=== PATIENT | female | born 1970 | race Caucasian/White ===

== ENCOUNTER 2020-07-12 01:18 | Inpatient (IN) | payer OTHER ==
[2020-07-12] MEDS ORDERED: MORPHINE SULFATE 4 MG/ML SYRINGE IV STA (01:36)
--- NOTE | 2020-07-12 01:39 | ED ---
Abdominal Pain HPI - General Chief Complaint: Abdominal Pain Stated Complaint: abd pain Time Seen by Provider: 07/12/20 01:27 Source: patient, family Mode of arrival: ambulatory Limitations: no limitations - History of Present Illness Initial Comments: This patient is a 50-year-old woman presenting to be evaluated for right lower abdominal and right flank pain. The patient states that the pains it started in the morning they were mild to moderate that time. She states that it is constant cramping feeling. She states that the pain is throughout the day and then became more severe this evening. She did have a bowel movement earlier but she thought that the pain may relate constipation so she took a laxative prior to coming in but did not have any further bowel movements. Patient did not note any change in urination. She has had some mild nausea no vomiting. No vaginal discharge or change in menses. She states that her next menstrual period is due to begin soon. MD Complaint: flank pain Onset/Timin -: hour(s) Location: RLQ, R flank Migration to: no migration Severity: moderate Quality: cramping Consistency: constant Improves With: nothing Worsens With: nothing Associated Symptoms: nausea - Related Data LMP (females 10-50): 1 month Home Medications Medication Instructions Recorded Confirmed [id number] 2 tab PO DAILY PRN 04/30/16 04/30/16 [Excedrin] Gillian Back And Body 2 tab PO ONCE 04/30/16 04/30/16 Previous Rx's Medication Instructions Recorded HYDROcodone/APAP 5-325MG [Heidrick 5] 1 each PO Q4HR PRN #20 tab 04/30/16 Ibuprofen [Motrin] 600 mg PO Q6HR PRN #20 tab 04/30/16 Ondansetron Odt [Zofran Odt] 4 mg PO Q8HR PRN #12 tab 04/30/16 Allergies Allergy/AdvReac Type Severity Reaction Status Date / Time No Known Allergies Allergy Verified 07/12/20 01:26 Review of Systems ROS Statement: Those systems with pertinent positive or pertinent negative responses have been documented in the HPI. ROS Other: All systems not noted in ROS Statement are negative. Constitutional: Denies: fever, chills Respiratory: Denies: cough, dyspnea Cardiovascular: Denies: chest pain, palpitations, edema Gastrointestinal: Reports: abdominal pain, nausea. 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 Absent: scleral icterus, conjunctival injection ENT exam: Present: normal oropharynx Neck exam: Present: normal inspection Respiratory exam: Present: normal lung sounds bilaterally. Absent: respiratory distress, wheezes, rales Cardiovascular Exam: Present: regular rate, normal rhythm, normal heart sounds. Absent: systolic murmur, diastolic murmur, rubs, gallop GI/Abdominal exam: Present: soft, tenderness, normal bowel sounds. Absent: distended, guarding, rebound, rigid, mass, pulsatile mass, hernia Extremities exam: Present: normal inspection, normal capillary refill. Absent: pedal edema, calf tenderness Back exam: Present: normal inspection, CVA tenderness (R). Absent: CVA tenderness (L) Neurological exam: Present: alert Skin exam: Present: warm, dry, intact, normal color. Absent: rash Course Vital Signs 07/12/20 01:22 Temperature 98.6 F Pulse Rate 85 Respiratory 20 Rate Blood Pressure 178/87 O2 Sat by Pulse 99 Oximetry Medical Decision Making - Lab Data Result diagrams: 07/12/20 01:49 07/12/20 01:49 Lab Results 07/12/20 07/12/20 07/12/20 Range/Units 01:49 01:49 01:49 WBC 12.7 H (3.8-10.6) k/uL RBC 5.02 (3.80-5.40) m/uL Hgb 14.5 (11.4-16.0) gm/dL Hct 44.2 (34.0-46.0) % MCV 88.2 (80.0-100.0) fL MCH 28.9 (25.0-35.0) pg MCHC 32.8 (31.0-37.0) g/dL RDW 14.6 (11.5-15.5) % Plt Count 398 (150-450) k/uL Neutrophils % 75 % Lymphocytes % 17 % Monocytes % 5 % Eosinophils % 2 % Basophils % 0 % Neutrophils # 9.5 H (1.3-7.7) k/uL Lymphocytes # 2.1 (1.0-4.8) k/uL Monocytes # 0.7 (0-1.0) k/uL Eosinophils # 0.3 (0-0.7) k/uL Basophils # 0.0 (0-0.2) k/uL Sodium 133 L (137-145) mmol/L Potassium 5.2 H (3.5-5.1) mmol/L Chloride 104 (98-107) mmol/L Carbon Dioxide 21 L (22-30) mmol/L Anion Gap 8 mmol/L BUN 14 (7-17) mg/dL Creatinine 1.11 H (0.52-1.04) mg/dL Est GFR (CKD-EPI)AfAm 67 (>60 ml/min/1.73 sqM) Est GFR (CKD-EPI)NonAf 58 (>60 ml/min/1.73 sqM) Glucose 147 H (74-99) mg/dL Calcium 9.1 (8.4-10.2) mg/dL Total Bilirubin 1.3 (0.2-1.3) mg/dL AST 44 H (14-36) U/L ALT 24 (4-34) U/L Alkaline Phosphatase 73 (38-126) U/L Total Protein 9.5 H (6.3-8.2) g/dL Albumin 4.5 (3.5-5.0) g/dL Amylase 57 (30-110) U/L Lipase 90 (23-300) U/L Urine Color Yellow Urine Appearance Clear (Clear) Urine pH 6.5 (5.0-8.0) Ur Specific [place] 1.024 (1.001-1.035) Urine Protein 1+ H (Negative) Urine Glucose (UA) Negative (Negative) Urine Ketones Trace H (Negative) Urine Blood Small H (Negative) Urine Nitrite Negative (Negative) Urine Bilirubin Negative (Negative) Urine Urobilinogen <2.0 (<2.0) mg/dL Ur Leukocyte Esterase Negative (Negative) Urine RBC 11 H (0-5) /hpf Urine WBC 2 (0-5) /hpf Ur Squamous Epith Cells 6 H (0-4) /hpf Urine Mucus Rare H (None) /hpf Urine HCG, Qual (Not Detectd) 07/12/20 Range/Units 01:49 WBC (3.8-10.6) k/uL RBC (3.80-5.40) m/uL Hgb (11.4-16.0) gm/dL Hct (34.0-46.0) % MCV (80.0-100.0) fL MCH (25.0-35.0) pg MCHC (31.0-37.0) g/dL RDW (11.5-15.5) % Plt Count (150-450) k/uL Neutrophils % % Lymphocytes % % Monocytes % % Eosinophils % % Basophils % % Neutrophils # (1.3-7.7) k/uL Lymphocytes # (1.0-4.8) k/uL Monocytes # (0-1.0) k/uL Eosinophils # (0-0.7) k/uL Basophils # (0-0.2) k/uL Sodium (137-145) mmol/L Potassium (3.5-5.1) mmol/L Chloride (98-107) mmol/L Carbon Dioxide (22-30) mmol/L Anion Gap mmol/L BUN (7-17) mg/dL Creatinine (0.52-1.04) mg/dL Est GFR (CKD-EPI)AfAm (>60 ml/min/1.73 sqM) Est GFR (CKD-EPI)NonAf (>60 ml/min/1.73 sqM) Glucose (74-99) mg/dL Calcium (8.4-10.2) mg/dL Total Bilirubin (0.2-1.3) mg/dL AST (14-36) U/L ALT (4-34) U/L Alkaline Phosphatase (38-126) U/L Total Protein (6.3-8.2) g/dL Albumin (3.5-5.0) g/dL Amylase (30-110) U/L Lipase (23-300) U/L Urine Color Urine Appearance (Clear) Urine pH (5.0-8.0) Ur Specific [place] (1.001-1.035) Urine Protein (Negative) Urine Glucose (UA) (Negative) Urine Ketones (Negative) Urine Blood (Negative) Urine Nitrite (Negative) Urine Bilirubin (Negative) Urine Urobilinogen (<2.0) mg/dL Ur Leukocyte Esterase (Negative) Urine RBC (0-5) /hpf Urine WBC (0-5) /hpf Ur Squamous Epith Cells (0-4) /hpf Urine Mucus (None) /hpf Urine HCG, Qual Not Detected (Not Detectd) Disposition Clinical Impression: Kidney stone on right side Disposition: ADMITTED IP TO THIS [facility] Condition: Good Referrals: None,Stated [Primary Care Provider] - 1-2 days
[2020-07-12 02:01] LABS: Basophils % (A) 0 %; Eosinophils # (A) 0.3 k/uL (0-0.7); Eosinophils % (A) 2 %; HCT 44.2 % (34.0-46.0); HGB 14.5 gm/dL (11.4-16.0); Lymphocytes # (A) 2.1 k/uL (1.0-4.8); Lymphocytes % (A) 17 %; MCH 28.9 pg (25.0-35.0); MCHC 32.8 g/dL (31.0-37.0); MCV 88.2 fL (80.0-100.0); Mean Platelet Volume 7.2; Monocytes # (A) 0.7 k/uL (0-1.0); Monocytes % (A) 5 %; Neutrophils # (A) 9.5 k/uL (1.3-7.7); Neutrophils % (A) 75 %; Platelet Count 398 k/uL (150-450); RBC 5.02 m/uL (3.80-5.40); RDW 14.6 % (11.5-15.5); WBC 12.7 k/uL (3.8-10.6)
[2020-07-12 02:07] LABS: Albumin 4.5 g/dL (3.5-5.0); Calcium 9.1 mg/dL (8.4-10.2); Total Bilirubin 1.3 mg/dL (0.2-1.3); Total Protein 9.5 g/dL (6.3-8.2)
[2020-07-12 02:11] LABS: Potassium 5.2 mmol/L (3.5-5.1)
[2020-07-12 02:18] LABS: Appearance,Urine Clear (Clear); Bilirubin,Urine Negative (Negative); Blood,Urine Small (Negative); Color,Urine Yellow; Glucose,Urine (UA) Negative (Negative); Ketones,Urine Trace (Negative); Leukocyte Esterase,Urine Negative (Negative); Mucus,Urine Rare /hpf; Nitrite,Urine Negative (Negative); PH, Urine 6.5 (5.0-8.0); Protein,Urine 1+ (Negative); RBC,Urine 11 /hpf (0-5); Specific Gravity,Urine 1.024 (1.001-1.035); Squamous Epithelial Cell,Urine 6 /hpf (0-4); Urobilinogen,Urine <2.0 mg/dL (<2.0); WBC,Urine 2 /hpf (0-5)
--- NOTE | 2020-07-12 02:30 | CT ---
EXAMINATION TYPE: CT abdomen pelvis wo con DATE OF EXAM: 07/12/2020 COMPARISON: 04/30/2016 HISTORY: RLQ and right flank pain hx of cholecystectomy. CT DLP: 1070.4 mGycm Automated exposure control for dose reduction was used. Images obtained from the diaphragm to the floor the pelvis without contrast. The lung bases are clear. There is no pleural effusion. Heart appears normal. There is small hiatal h ernia. There is small calcified granuloma in this spleen and liver. There are clips from cholecystectomy. Th e bile ducts are not dilated. The pancreas appears normal. There is no adrenal mass. Right kidney is mildly enlarged with hydronephrosis. There is 1 cm calculus at the right ureteropelvic junction. There is mild right-sided perinephric edema. There is no retrop eritoneal adenopathy. Appendix is posterior and appears normal. Bladder distends smoothly. There is no inguinal hernia. Uterus is anteverted. There is no free fluid in the pelvis. There is no ascites or free air. There is no bowel obstruction. There is no mesenteric edema. There is no evidence of a pelvic mass. The ureters are not dilated. The lumbar vertebra have normal spacing and alignment. The bony pelvis is intact. IMPRESSION: Large obstructing calculus at the right ureteropelvic junction with moderate right-sided hydronephros is and perinephric edema. Obstruction is new compared to old exam. Normal appendix.
[2020-07-12] MEDS ORDERED: ONDANSETRON 4 MG/2 ML VIAL IVP STA (02:49)
[2020-07-12] MEDS ORDERED: HYDROmorphone 1 MG/ML 1 ML SYRINGE IVP STA (02:49)
[2020-07-12] MEDS ORDERED: NALOXONE 0.4 MG/ML 1 ML VIAL IV PRN (03:03)
[2020-07-12] MEDS ORDERED: HYDROmorphone 0.5 MG/0.5 ML SYRINGE IVP PRN (03:03)
[2020-07-12] MEDS: SODIUM CHLORIDE 0.9% 1,000 ML IV SCH (03:21)
--- NOTE | 2020-07-12 07:46 | P.GSHP ---
History of Present Illness H&P Date: 07/12/20 Chief Complaint: Right renal colic The patient is a 50-year-old white female with a history of kidney stones, none of which have required surgery. She developed acute onset of right flank pain yesterday morning. She experienced nausea associated with this. She presented to the emergency room, and her evaluation included a computed tomography scan which revealed moderate right hydronephrosis due to a 1 cm UPJ calculus. 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, kidney stones History of Any Multi-Drug Resistant Organisms: None Reported Past Surgical History: Cholecystectomy, Orthopedic Surgery, Tubal Ligation Additional Past Surgical History / Comment(s): lap, left knee scope Past Anesthesia/Blood Transfusion Reactions: No Reported Reaction Past Psychological History: No Psychological Hx Reported Smoking Status: Former smoker Past Alcohol Use History: Occasional Past Drug Use History: None Reported - Past Family History Father Family Medical History: Cancer Additional Family Medical History / Comment(s): prostate Mother Family Medical History: Hypertension Medications and Allergies Home Medications Medication Instructions Recorded Confirmed Type [id number] 2 tab PO DAILY PRN 04/30/16 07/12/20 History [Excedrin] Docusate Oral Soln [Colace Oral 300 mg PO ONCE PRN 07/12/20 07/12/20 History Soln] Allergies Allergy/AdvReac Type Severity Reaction Status Date / Time No Known Allergies Allergy Verified 07/12/20 07:20 Surgical - Exam Vital Signs Temp Pulse Resp BP Pulse Ox 98.6 F 85 20 178/87 99 07/12/20 01:22 07/12/20 01:22 07/12/20 01:22 07/12/20 01:22 07/12/20 01:22 - General well developed, well nourished, no distress - Neck no masses, trachea midline - Respiratory normal respiratory effort - Abdomen Abdomen: soft, tender (right sided tenderness), no guarding, no rigid, no rebound, no distended - Psychiatric oriented to time, oriented to person, oriented to place, speech is normal, memor y intact Results - Labs 07/12/20 01:49 07/12/20 01:49 Abnormal Lab Results - Last 24 Hours (Table) 07/12/20 07/12/20 07/12/20 Range/Units 01:49 01:49 01:49 WBC 12.7 H (3.8-10.6) k/uL Neutrophils # 9.5 H (1.3-7.7) k/uL Sodium 133 L (137-145) mmol/L Potassium 5.2 H (3.5-5.1) mmol/L Carbon Dioxide 21 L (22-30) mmol/L Creatinine 1.11 H (0.52-1.04) mg/dL Glucose 147 H (74-99) mg/dL AST 44 H (14-36) U/L Total Protein 9.5 H (6.3-8.2) g/dL Urine Protein 1+ H (Negative) Urine Ketones Trace H (Negative) Urine Blood Small H (Negative) Urine RBC 11 H (0-5) /hpf Ur Squamous Epith Cells 6 H (0-4) /hpf Urine Mucus Rare H (None) /hpf Diabetes panel 07/12/20 Range/Units 01:49 Sodium 133 L (137-145) mmol/L Potassium 5.2 H (3.5-5.1) mmol/L Chloride 104 (98-107) mmol/L Carbon Dioxide 21 L (22-30) mmol/L BUN 14 (7-17) mg/dL Creatinine 1.11 H (0.52-1.04) mg/dL Glucose 147 H (74-99) mg/dL Calcium 9.1 (8.4-10.2) mg/dL AST 44 H (14-36) U/L ALT 24 (4-34) U/L Alkaline Phosphatase 73 (38-126) U/L Total Protein 9.5 H (6.3-8.2) g/dL Albumin 4.5 (3.5-5.0) g/dL Calcium panel 07/12/20 Range/Units 01:49 Calcium 9.1 (8.4-10.2) mg/dL Albumin 4.5 (3.5-5.0) g/dL Pituitary panel 07/12/20 Range/Units 01:49 Sodium 133 L (137-145) mmol/L Potassium 5.2 H (3.5-5.1) mmol/L Chloride 104 (98-107) mmol/L Carbon Dioxide 21 L (22-30) mmol/L BUN 14 (7-17) mg/dL Creatinine 1.11 H (0.52-1.04) mg/dL Glucose 147 H (74-99) mg/dL Calcium 9.1 (8.4-10.2) mg/dL Adrenal panel 07/12/20 Range/Units 01:49 Sodium 133 L (137-145) mmol/L Potassium 5.2 H (3.5-5.1) mmol/L Chloride 104 (98-107) mmol/L Carbon Dioxide 21 L (22-30) mmol/L BUN 14 (7-17) mg/dL Creatinine 1.11 H (0.52-1.04) mg/dL Glucose 147 H (74-99) mg/dL Calcium 9.1 (8.4-10.2) mg/dL Total Bilirubin 1.3 (0.2-1.3) mg/dL AST 44 H (14-36) U/L ALT 24 (4-34) U/L Alkaline Phosphatase 73 (38-126) U/L Total Protein 9.5 H (6.3-8.2) g/dL Albumin 4.5 (3.5-5.0) g/dL - Imaging CT scan - abdomen: report reviewed, image reviewed Assessment and Plan (1) Hydronephrosis with renal and ureteral calculous obstruction Current Visit: Yes Status: Acute Code(s): N13.2 - HYDRONEPHROSIS WITH RENAL AND URETERAL CALCULOUS OBSTRUCTION SNOMED Code(s): 056792254 (2) Calculus of ureter Current Visit: Yes Status: Acute Code(s): N20.1 - CALCULUS OF URETER SNOMED Code(s): 73333409 Plan: I had a lengthy discussion with the patient regarding her 1 cm UPJ calculus. I explained to her that the likelihood this will pass spontaneously is extremely low. We discussed alternative treatment options, namely extracorporal shockwave lithotripsy (ESWL) versus ureteroscopy with laser lithotripsy. She has elected to proceed with the latter, and this will be performed tomorrow morning. The procedure was reviewed in detail with her, including risks which include anesthesia, infection, ureteral injury, and inability to successfully remove the calculus. She is aware that a ureteral stent will be placed, and that she may require an additional procedure. Time with Patient: Greater than 30
[2020-07-12] MEDS: HYDROmorphone 1 MG/ML 1 ML SYRINGE IVP PRN ×4 (08:00→21:20)
[2020-07-12] MEDS: ONDANSETRON 4 MG/2 ML VIAL IVP PRN ×2 (12:04→21:25)
[2020-07-13] MEDS: HYDROmorphone 1 MG/ML 1 ML SYRINGE IVP PRN ×2 (01:26→05:45)
[2020-07-13] MEDS: SODIUM CHLORIDE 0.9% 1,000 ML IV SCH (05:30)
[2020-07-13] MEDS: ONDANSETRON 4 MG/2 ML VIAL IVP PRN (06:30)
[2020-07-13] MEDS ORDERED: PROPOFOL 10 MG/ML 20 ML VIAL IV ONE (08:09)
[2020-07-13] MEDS ORDERED: fentaNYL (PF) 50 MCG/ML 2 ML AMP ONE (08:09)
[2020-07-13] MEDS ORDERED: LIDOCAINE 1% INJ 10MG/ML (20 ML MDV) ONE (08:09)
[2020-07-13] MEDS ORDERED: MIDAZOLAM 2 MG/2 ML VIAL ONE (08:09)
[2020-07-13] MEDS ORDERED: SODIUM CHLORIDE 0.9% 1,000 ML IV ONE (08:13)
[2020-07-13] MEDS ORDERED: LACTATED RINGERS 1,000 ML IV ONE (09:12)
--- NOTE | 2020-07-13 09:29 | P.OP ---
Date of Procedure: 07/13/20 Preoperative Diagnosis: Right UPJ calculus Postoperative Diagnosis: Same Procedure(s) Performed: Cystoscopy, right ureteroscopy with Holmium laser lithotripsy, right ureteral stent insertion Anesthesia: SERGOA Surgeon: Trev Medrano Estimated Blood Loss (ml): 10 IV fluids (ml): 1,000 Pathology: none sent Condition: stable Disposition: PACU Indications for Procedure: The patient is a 50-year-old white female with a history of kidney stones, none of which have required surgery. She developed acute onset of right flank pain yesterday morning. She experienced nausea associated with this. She presented to the emergency room, and her evaluation included a computed tomography scan which revealed moderate right hydronephrosis due to a 1 cm UPJ calculus. Operative Findings: 1 cm right UPJ calculus, fragmented completely. Description of Procedure: The patient was taken to the operating room and placed in the dorsolithotomy position, with legs supported in Kurt stirrups. The external genitalia was prepped and draped sterilely. The 30 lens was used to introduce the 21-[place] cystoscopic sheath through the urethra and into the bladder under direct vision. The bladder was examined in its entirety. Both ureteral orifices were normal anatomic location and configuration, and clear urine effluxed from both. No tumors or foreign bodies were seen. A 0.038 inch Glidewire was passed through the cystoscope. The right ureteral orifice was cannulated, and the Glidewire was advanced up to the calculus. It then passed alongside the calculus and into the right renal pelvis. The cystoscope was removed, and an 11/13-[place] ureteral access catheter was passed over the wire. The [employer] flexible ureteroscope was advanced through the ureteral access catheter sheath, then through the proximal ureter under direct vision. The calculus was seen within the right renal pelvis. The 272 micron Holmium laser probe was passed through the ureteroscope, and lithotripsy was performed utilizing a dusting mode. However, the calculus then began to fragment, and 2 pieces refluxed into a midpole calyx. Within that calyx, fragmentation of the calculus was completed, leaving primarily dust with no stone fragments exceeding 1-2 mm in size. The ureteroscope was removed. The Glidewire was passed through the ureteral access catheter sheath, which was removed. The Glidewire was backloaded into the cystoscope, which was passed into the bladder. A 22 cm, 6-[place] double-J ureteral stent was placed over the wire. Proper stent positioning was verified fluoroscopically and endoscopical ly. The bladder was emptied and the cystoscope removed. The patient tolerated the procedure well and was taken to the recovery room in stable condition. [facility] Report: Procedure Acuity: Urgent Stone Size and Location: 1 cm, right UPJ Ureteral Dilation: No Ureteral Access Sheath Used: Yes Stone Sent for Analysis: No All Stones/Fragments Were Removed with a Basket: No Complications: No Preoperative Antibiotics Given: No Stent Placed: Yes If Stent Placed, Was String Left Attached: No If Stent Placed, When is it to be Removed: 1 week Discharge Medications: None
[2020-07-13 09:33] VITALS: TEMP 97.3
[2020-07-13 09:46] VITALS: RESP 16
--- NOTE | 2020-07-13 09:53 | FL ---
EXAMINATION TYPE: FL guidance operating room DATE OF EXAM: 07/13/2020 CLINICAL HISTORY: Right-sided kidney stone. TECHNIQUE: Fluoroscopy. COMPARISON: CT abdomen and pelvis from one day earlier.. FINDINGS: Fluoroscopic guidance was provided during right ureterogram with stent insertion procedure performed by Dr. Medrano. A total of 40 seconds of fluoroscopic time was utilized during the procedu re and 2 spot intraoperative images are acquired. Intraoperative images obtained show right ureter access with subsequent advancement of ureter stent. IMPRESSION: As Above.
[2020-07-13 12:34] VITALS: BP 129/85; PULSE 71
== END 2020-07-13 14:18 | disposition home or self-care (01) | DRG 661 ==
LOC: EC 01:18 → 6NMEDSUR 03:09
PROVIDERS: ADMIT Urology; ATTEND Urology
PROC: 0TF38ZZ Fragmentation in Right Kidney Pelvis, Via Natural or Artificial Opening Endoscopic (ICD-10-PCS; principal; 2020-07-13 08:00)
PROC: 0T768DZ Dilation of Right Ureter with Intraluminal Device, Via Natural or Artificial Opening Endoscopic (ICD-10-PCS; principal; 2020-07-13 08:00)
DX: N13.2 Hydronephrosis with renal and ureteral calculous obstruction (principal); M19.90 Unspecified osteoarthritis, unspecified site; Z87.442 Personal history of urinary calculi; Z87.891 Personal history of nicotine dependence; Z90.49 Acquired absence of other specified parts of digestive tract; Z98.890 Other specified postprocedural states; Z87.19 Personal history of other diseases of the digestive system; Z98.51 Tubal ligation status; Z82.49 Family history of ischemic heart disease and other diseases of the circulatory system; Z86.79 Personal history of other diseases of the circulatory system; Z79.82 Long term (current) use of aspirin
CPT/HCPCS: 36415; 74176; 80053; 81001; 81025; 82150; 83690; 85025; 96374; 96375; 99285

== ENCOUNTER 2022-04-05 23:31 | Emergency (ER) | payer OTHER ==
--- NOTE | 2022-04-06 00:16 | XR ---
EXAM: XR Chest, 2 Views CLINICAL HISTORY: ITS.REASON XR Reason: Cough TECHNIQUE: Frontal and lateral views of the chest. COMPARISON: No previous studies. FINDINGS: Lungs: Patchy airspace disease at the left lower lobe differential etiologies for which includes atelectasis versus early or residual pneumonia. Pleural space: Unremarkable. No pneumothorax. Heart: Mild cardiomegaly. Mediastinum: Unremarkable. Bones/joints: Osseous structures and soft tissues are unremarkable. Mild to moderate degenerative disc disease of the thoracic spine, kyphosis, and levoscoliosis. IMPRESSION: 1. Cardiomegaly. 2. Patchy airspace disease at the left lung base differential etiologies which includes atelectasis versus early or residual pneumonia. Clinical correlation is advised.
[2022-04-06] MEDS ORDERED: SODIUM CHLORIDE 0.9% 1,000 ML IV STA (00:17)
[2022-04-06] MEDS ORDERED: ACETAMINOPHEN TAB 500 MG TAB PO STA (00:17)
--- NOTE | 2022-04-06 00:41 | ED ---
URI HPI - General Source: patient Mode of arrival: ambulatory Limitations: no limitations - History of Present Illness MD Complaint: fever, cough, nasal congestion <Andi Goel - Last Filed: 04/06/22 03:50> <Guido Perkins - Last Filed: 04/06/22 06:09> - General Chief Complaint: Upper Respiratory Infection Stated Complaint: SOB, cough Time Seen by Provider: 04/05/22 23:52 - History of Present Illness Initial Comments: This is a generally healthy 51-year-old female who presents to emergency room complaining of a few days of body aches, cough, some shortness of breath, some fever, mild headache. Patient is immunized against COVID-19. Patient has no history of cardiovascular disease. Patient is been eating and drinking normally. No nausea or vomiting. No change in balance urination. No abdominal pain. No chest pain. no changes in vision or hearing, no sore throat or difficulty with speech, no neck pain, no chest pain, no abdominal pain, no nausea or vomiting, no changes in urination or bowel movements, no numbness or tingling, no extremity pain, no skin rashes or lesions. (Andi Goel) - Related Data Home Medications Medication Instructions Recorded Confirmed [id number] 2 tab PO DAILY PRN 04/30/07/12/20 [Excedrin] Docusate Oral Soln [Colace Oral 300 mg PO ONCE PRN 07/12/20 07/12/20 Soln] Previous Rx's Medication Instructions Recorded Amoxic-Pot Clav 875-125Mg 1 tab PO BID 10 Days #20 tab 04/06/22 [Augmentin 875-125] Azithromycin [Zithromax Z Pack] 1 tab PO DIRECTED #6 tab 04/06/22 Allergies Allergy/AdvReac Type Severity Reaction Status Date / Time No Known Allergies Allergy Verified 04/05/22 23:37 Review of Systems ROS Other: All systems not noted in ROS Statement are negative. <Andi Goel - Last Filed: 04/06/22 03:50> ROS Other: All systems not noted in ROS Statement are negative. <Guido Perkins - Last Filed: 04/06/22 06:09> ROS Statement: Those systems with pertinent positive or pertinent negative responses have been documented in the HPI. 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, kidney stones History of Any Multi-Drug Resistant Organisms: None Reported Past Surgical History: Cholecystectomy, Orthopedic Surgery, Tubal Ligation Additional Past Surgical History / Comment(s): lap, left knee scope Past Anesthesia/Blood Transfusion Reactions: No Reported Reaction Past Psychological History: No Psychological Hx Reported Smoking Status: Former smoker Past Alcohol Use History: Occasional Past Drug Use History: None Reported - Past Family History Father Family Medical History: Cancer Additional Family Medical History / Comment(s): prostate Mother Family Medical History: Hypertension <AmandoAndi Clement Carmelo Filed: 04/06/22 03:50> General Exam Limitations: no limitations General appearance: alert, in no apparent distress Head exam: Present: atraumatic, normocephalic, normal inspection Eye exam: Present: normal appearance, PERRL, EOMI. Absent: scleral icterus, conjunctival injection, periorbital swelling ENT exam: Present: normal exam, normal oropharynx, mucous membranes moist. Absent: mucous membranes dry, normal external ear exam Neck exam: Present: normal inspection, full ROM. Absent: tenderness, meningismus, lymphadenopathy Respiratory exam: Present: rhonchi. Absent: respiratory distress, wheezes, rales, stridor, chest wall tenderness, accessory muscle use, decreased breath sounds, prolonged expiratory Cardiovascular Exam: Present: regular rate, normal rhythm, normal heart sounds. Absent: systolic murmur, diastolic murmur, rubs, gallop, clicks GI/Abdominal exam: Present: soft, normal bowel sounds. Absent: distended, tenderness, guarding, rebound, rigid Extremities exam: Present: normal inspection, full ROM, normal capillary refill. Absent: tenderness, pedal edema, joint swelling, calf tenderness Back exam: Present: normal inspection Neurological exam: Present: alert, oriented X3, CN II-XII intact Psychiatric exam: Present: normal affect, normal mood Skin exam: Present: warm, dry, intact, normal color. Absent: rash, cyanosis, diaphoretic, erythema, urticaria, vesicles, petechiae, pallor, mottled, abrasion <AmandoAndi Clement Carmelo Filed: 04/06/22 03:50> - General Exam Comments Initial Comments: Patient appears to be in mild distress. However does not appear to be toxic. Capillary refill less than 2 seconds. No evidence of mottling. Moist mucous membranes (Andi Goel) Course <Andi Goel - Last Filed: 04/06/22 03:50> Vital Signs 04/05/22 04/06/22 04/06/22 23:31 00:58 02:08 Temperature 100.9 F H Pulse Rate 111 H 87 Respiratory 20 26 H Rate Blood Pressure 153/76 O2 Sat by Pulse 96 Oximetry 04/06/22 04/06/22 04/06/22 02:18 02:45 02:57 Temperature 99.1 F Pulse Rate 87 84 Respiratory 20 Rate Blood Pressure 116/67 O2 Sat by Pulse 92 L 95 Oximetry 04/06/22 04/06/22 03:51 04:00 Temperature Pulse Rate Respiratory Rate Blood Pressure O2 Sat by Pulse 99 99 Oximetry - Reevaluation(s) Reevaluation #1: 04/06/22 02:12 Medical record is reviewed Symptoms are improved here in the emergency department Patient is informed of results and questions answered Patient in no distress (Andi Goel) Reevaluation #2: 04/06/22 02:51 Medical record is reviewed Patient's vital signs have stabilized, although the patient's pulse oximetry has dropped into the high 80s low 90s. Pulse oximetry at 88% on room air when I enter the room. Patient is informed of results and questions answered (Andi Goel) Reevaluation #3: 04/06/22 03:50 Medical record is reviewed Symptoms are improved here in the emergency department Patient is informed of results and questions answered male with stress. Oxygen saturation 95% on 2 L nasal cannula. (Andi Goel) Medical Decision Making - Lab Data Result diagrams: 04/06/22 00:43 04/06/22 03:30 - Radiology Data Radiology results: report reviewed, image reviewed (X-ray findings consistent with left lower lobe pneumonia) <Andi Goel - Last Filed: 04/06/22 03:50> - Lab Data Result diagrams: 04/06/22 00:43 04/06/22 03:30 <Guido Perkins - Last Filed: 04/06/22 06:09> - Medical Decision Making Patient had oxygen desaturation down to 88% when I enter the room for reevaluation. Patient's other vital signs at stabilized. Going to add on a d- dimer based on these findings. The patient's white blood cell count is normal. She did have a fever of 101.9 when she came to the ER. Patient also has evidence of left lower lobe infiltrate/atelectasis. Motor the patient has low lymphocytes. Negative COVID-19, negative influenza test. Repeat cardiopulmonary examination at 2:50 AM reveals regular rate and rhythm, no murmur, scattered and infrequent rhonchi, greater on the left. No wheezing. No tachypnea. (Andi Goel) CT showing consolidated pneumonia, patient had been given IV antibiotics in emergency prompt. She is offered admission however she prefers discharge at this time she is not hypoxic. Antibiotics are sent to her pharmacy. She will return with worsening or changing symptoms. (Guido Perkins) - Lab Data Lab Results 04/05/22 04/05/22 04/06/22 Range/Units 23:40 23:40 00:43 WBC 8.6 (3.8-10.6) k/uL RBC 4.37 (3.80-5.40) m/uL Hgb 13.2 (11.4-16.0) gm/dL Hct 39.0 (34.0-46.0) % MCV 89.2 (80.0-100.0) fL MCH 30.3 (25.0-35.0) pg MCHC 34.0 (31.0-37.0) g/dL RDW 14.9 (11.5-15.5) % Plt Count 288 (150-450) k/uL MPV 7.5 Neutrophils % 88 % Lymphocytes % 7 % Monocytes % 4 % Eosinophils % 0 % Basophils % 1 % Neutrophils # 7.5 (1.3-7.7) k/uL Lymphocytes # 0.6 L (1.0-4.8) k/uL Monocytes # 0.4 (0-1.0) k/uL Eosinophils # 0.0 (0-0.7) k/uL Basophils # 0.1 (0-0.2) k/uL D-Dimer (<0.60) mg/L FEU Sodium (137-145) mmol/L Potassium (3.5-5.1) mmol/L Chloride (98-107) mmol/L Carbon Dioxide (22-30) mmol/L Anion Gap mmol/L BUN (7-17) mg/dL Creatinine (0.52-1.04) mg/dL Est GFR (CKD-EPI)AfAm (>60 ml/min/1.73 sqM) Est GFR (CKD-EPI)NonAf (>60 ml/min/1.73 sqM) Glucose (74-99) mg/dL Plasma Lactic Acid Tera (0.7-2.0) mmol/L Calcium (8.4-10.2) mg/dL Total Bilirubin (0.2-1.3) mg/dL AST (14-36) U/L ALT (4-34) U/L Alkaline Phosphatase (38-126) U/L Total Protein (6.3-8.2) g/dL Albumin (3.5-5.0) g/dL Coronavirus (PCR) Not Detected (Not Detectd) Influenza Type A RNA Not Detected (Not Detectd) Influenza Type B (PCR) Not Detected (Not Detectd) 04/06/22 04/06/22 04/06/22 Range/Units 00:43 02:56 03:30 WBC (3.8-10.6) k/uL RBC (3.80-5.40) m/uL Hgb (11.4-16.0) gm/dL Hct (34.0-46.0) % MCV (80.0-100.0) fL MCH (25.0-35.0) pg MCHC (31.0-37.0) g/dL RDW (11.5-15.5) % Plt Count (150-450) k/uL MPV Neutrophils % % Lymphocytes % % Monocytes % % Eosinophils % % Basophils % % Neutrophils # (1.3-7.7) k/uL Lymphocytes # (1.0-4.8) k/uL Monocytes # (0-1.0) k/uL Eosinophils # (0-0.7) k/uL Basophils # (0-0.2) k/uL D-Dimer 0.81 H (<0.60) mg/L FEU Sodium 137 (137-145) mmol/L Potassium 3.5 (3.5-5.1) mmol/L Chloride 102 (98-107) mmol/L Carbon Dioxide 22 (22-30) mmol/L Anion Gap 13 mmol/L BUN 12 (7-17) mg/dL Creatinine 0.75 (0.52-1.04) mg/dL Est GFR (CKD-EPI)AfAm >90 (>60 ml/min/1.73 sqM) Est GFR (CKD-EPI)NonAf >90 (>60 ml/min/1.73 sqM) Glucose 134 H (74-99) mg/dL Plasma Lactic Acid Tera 1.6 (0.7-2.0) mmol/L Calcium 8.4 (8.4-10.2) mg/dL Total Bilirubin 0.5 (0.2-1.3) mg/dL AST 38 H (14-36) U/L ALT 36 H (4-34) U/L Alkaline Phosphatase 72 (38-126) U/L Total Protein 9.8 H (6.3-8.2) g/dL Albumin 4.2 (3.5-5.0) g/dL Coronavirus (PCR) (Not Detectd) Influenza Type A RNA (Not Detectd) Influenza Type B (PCR) (Not Detectd) Disposition <Andi Goel - Last Filed: 04/06/22 03:50> Is patient prescribed a controlled substance at d/c from ED?: No Time of Disposition: 05:25 <Guido Perkins - Last Filed: 04/06/22 06:09> Clinical Impression: Left lower lobe pneumonia, Community acquired pneumonia, Respiratory failure with hypoxia Disposition: HOME SELF-CARE Condition: Fair Instructions (If sedation given, give patient instructions): Bacterial Pneumonia (ED) Prescriptions: Amoxic-Pot Clav 875-125Mg [Augmentin 875-125] 1 tab PO BID 10 Days #20 tab Azithromycin [Zithromax Z Pack] 1 tab PO DIRECTED #6 tab Referrals: None,Stated [Primary Care Provider] - 1-2 days
[2022-04-06 01:34] LABS: Basophils # (A) 0.1 k/uL (0-0.2); Basophils % (A) 1 %; Eosinophils % (A) 0 %; HGB 13.2 gm/dL (11.4-16.0); Lymphocytes # (A) 0.6 k/uL (1.0-4.8); Lymphocytes % (A) 7 %; MCH 30.3 pg (25.0-35.0); MCV 89.2 fL (80.0-100.0); Mean Platelet Volume 7.5; Monocytes # (A) 0.4 k/uL (0-1.0); Monocytes % (A) 4 %; Neutrophils # (A) 7.5 k/uL (1.3-7.7); Neutrophils % (A) 88 %; Platelet Count 288 k/uL (150-450); RBC 4.37 m/uL (3.80-5.40); RDW 14.9 % (11.5-15.5); WBC 8.6 k/uL (3.8-10.6)
[2022-04-06] MEDS ORDERED: IPRATROPIUM-ALBUTEROL 3 ML NEB INHALATION STA (01:55)
[2022-04-06] MEDS ORDERED: PNEUMONIA PROTOCOL UTILIZED 1 EACH MISC PO PRN (01:55)
[2022-04-06] MEDS ORDERED: AZITHROMYCIN 500 MG in SODIUM CHLORIDE 0.9% 250 ML IVPB STA (01:55)
[2022-04-06 03:49] LABS: ALT 36 U/L (4-34); AST 38 U/L (14-36); African American GFR (CKD) >90 (>60 ml/min/1.73 sqM); Albumin 4.2 g/dL (3.5-5.0); Alkaline Phosphatase 72 U/L (38-126); Anion Gap 13 mmol/L; Blood Urea Nitrogen 12 mg/dL (7-17); Calcium 8.4 mg/dL (8.4-10.2); Carbon Dioxide 22 mmol/L (22-30); Chloride 102 mmol/L (98-107); Glucose 134 mg/dL (74-99); Non-African American GFR(CKD) >90 (>60 ml/min/1.73 sqM); Potassium 3.5 mmol/L (3.5-5.1); Sodium 137 mmol/L (137-145); Total Bilirubin 0.5 mg/dL (0.2-1.3); Total Protein 9.8 g/dL (6.3-8.2)
--- NOTE | 2022-04-06 06:05 | CT ---
EXAM: CT Angiography Chest With Intravenous Contrast CLINICAL HISTORY: ITS.REASON CT Reason: Shortness of breath, cough TECHNIQUE: Axial computed tomographic angiography images of the chest with intravenous contrast. CTDI is 28.084 mGy and DLP is 715.3 mGy-cm. This CT exam was performed using one or more of the following dose reduction techniques: automated exposure control, adjustment of the mA and/or kV according to patient size, and/or use of iterative reconstruction technique. MIP reconstructed images were created and reviewed. COMPARISON: No relevant prior studies available. FINDINGS: Pulmonary arteries: Unremarkable. No pulmonary embolism. Aorta: No acute findings. No thoracic aortic aneurysm. Lungs: Consolidation in the posterior left lower lobe with centrilobular ground-glass nodules in the inferior left upper lobe. Mild right base atelectasis. Pleural space: Unremarkable. No significant effusion. No pneumothorax. Heart: Unremarkable. No cardiomegaly. No significant pericardial effusion. No evidence of RV dysfunction. Bones/joints: No acute fracture. No dislocation. Soft tissues: Status post cholecystectomy. Multiple splenic calcifications consistent with sequela of prior granulomatous disease. Lymph nodes: Calcified right hilar lymph nodes. No enlarged lymph nodes. IMPRESSION: 1. No acute pulmonary embolism. 2. Consolidation in the posterior left lower lobe with centrilobular ground-glass nodules in the inferior left upper lobe which may be due to aspiration or multifocal infection.
[2022-04-06] MEDS ORDERED: KETOROLAC 15 MG/ML 1 ML VIAL IVP STA (06:20)
[2022-04-06 06:22] VITALS: PULSE 83
[2022-04-06 07:20] VITALS: BP 114/66; RESP 20; TEMP 98.5
== END 2022-04-06 07:21 | disposition home or self-care (01) ==
LOC: EC 23:31
DX: J96.91 Respiratory failure, unspecified with hypoxia (principal); J18.1 Lobar pneumonia, unspecified organism; Z87.891 Personal history of nicotine dependence; Z20.822 Contact with and (suspected) exposure to COVID-19
CPT/HCPCS: 36415; 94640; 85379; 80053; 83605; 85025; 87040; 87502; 87635; 71046; 71275; 99285; 96365; 96367; 96361; J0456; J0696; J1885; Q9967

== ENCOUNTER 2024-10-31 00:52 | Emergency (ER) | payer OTHER ==
--- NOTE | 2024-10-31 01:15 | ED ---
SOB HPI - General Chief Complaint: Shortness of Breath Stated Complaint: SOB weakness Time Seen by Provider: 10/31/24 01:00 Source: patient, RN notes reviewed, old records reviewed Mode of arrival: wheelchair Limitations: no limitations - History of Present Illness Initial Comments: This is a 54-year-old female this patient presents today for evaluation in regards to chest pain back pain cough shortness of breath fevers going on about 5 days now. Persistent chest pain today that got her concerned. No history of heart disease no lung issues MD Complaint: shortness of breath, cough, chest pain -: days(s) (5) Severity: moderate Severity scale (1-10): 6 Quality: aching, sharp Consistency: constant Improves With: nothing Worsens With: exertion Context: recent URI, recent illness Associated Symptoms: chest pain, fever, cough, sputum production Treatments Prior to Arrival: none - Related Data Home Medications Medication Instructions Recorded Confirmed [id number] 2 tab PO DAILY PRN 04/30/16 07/12/20 [Excedrin] Docusate Oral Soln [Colace Oral 300 mg PO ONCE PRN 07/12/20 07/12/20 Soln] Previous Rx's Medication Instructions Recorded Amoxic-Pot Clav 875-125Mg 1 tab PO BID 10 Days #20 tab 04/06/22 [Augmentin 875-125] Azithromycin [Zithromax Z Pack] 1 tab PO DIRECTED #6 tab 04/06/22 Allergies Allergy/AdvReac Type Severity Reaction Status Date / Time No Known Allergies Allergy Verified 10/31/24 00:58 Review of Systems ROS Statement: Those systems with pertinent positive or pertinent negative responses have been documented in the HPI. ROS Other: All systems not noted in ROS Statement are negative. 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, kidney stones History of Any Multi-Drug Resistant Organisms: None Reported Past Surgical History: Cholecystectomy, Orthopedic Surgery, Tubal Ligation Additional Past Surgical History / Comment(s): lap, left knee scope Past Anesthesia/Blood Transfusion Reactions: No Reported Reaction Past Psychological History: No Psychological Hx Reported Smoking Status: Former smoker Past Alcohol Use History: Occasional Past Drug Use History: None Reported - Past Family History Father Family Medical History: Cancer Additional Family Medical History / Comment(s): prostate Mother Family Medical History: Hypertension General Exam Limitations: no limitations General appearance: alert, in no apparent distress Head exam: Present: atraumatic, normocephalic, normal inspection Eye exam: Present: normal appearance, PERRL, EOMI. Absent: scleral icterus, conjunctival injection, periorbital swelling ENT exam: Present: normal exam, mucous membranes moist Neck exam: Present: normal inspection. Absent: tenderness, meningismus, lymphadenopathy Respiratory exam: Present: normal lung sounds bilaterally. Absent: respiratory distress, wheezes, rales, rhonchi, stridor Cardiovascular Exam: Present: regular rate, normal rhythm, normal heart sounds. Absent: systolic murmur, diastolic murmur, rubs, gallop, clicks GI/Abdominal exam: Present: soft, normal bowel sounds. Absent: distended, tenderness, guarding, rebound, rigid Extremities exam: Present: normal inspection, full ROM, normal capillary refill. Absent: tenderness, pedal edema, joint swelling, calf tenderness Back exam: Present: normal inspection Neurological exam: Present: alert, oriented X3, CN II-XII intact Psychiatric exam: Present: normal affect, normal mood Skin exam: Present: warm, dry, intact, normal color. Absent: rash Course Vital Signs 10/31/24 00:53 Temperature 97.8 F Pulse Rate 94 Respiratory 19 Rate Blood Pressure 128/85 O2 Sat by Pulse 95 Oximetry - Reevaluation(s) Reevaluation #1: 10/31/24 01:19 Medical records reviewed Reevaluation #2: 10/31/24 05:20 Symptoms unchanged Reevaluation #3: 10/31/24 05:20 Patient symptoms unchanged Reevaluation #4: Was pt. sent in by a medical professional or institution (, PA, ORNAMENTAL MACHINE OPERATOR, urgent care, hospital, or correction...) When possible be specific @ -no Did you speak to anyone other than the patient for history (EMS, parent, family, police, friend...)? What history was obtained from this source @ -no Did you review nursing and triage notes (agree or disagree)? Why? @ -agree Are old charts reviewed (outside hosp., previous admission, EMS record, old EKG, old radiological studies, urgent care reports/EKG's, correction records)? Report findings @ -yes Differential Diagnosis (chest pain, altered mental status, abdominal pain women, abdominal pain men, vaginal bleeding, weakness, fever, dyspnea, syncope, headache, dizziness, GI bleed, back pain, seizure, CVA, palpatations, mental health, musculoskeletal)? @ -prior EKG interpreted by me (3pts min.). @ -yes X-rays interpreted by me (1pt min.). @ -yes negative for acute disease CT interpreted by me (1pt min.). @ -no U/S interpreted by me (1pt. min.). @ -no What testing was considered but not performed or refused? (CT, X-rays, U/S, labs)? Why? @ -none What meds were considered but not given or refused? Why? @ -none Did you discuss the management of the patient with other professionals (professionals i.e. , PA, ORNAMENTAL MACHINE OPERATOR, lab, RT, psych nurse, dialysis social worker, hooker off, teacher, state patrol officer, bottle caser)? Give summary @ -no Was smoking cessation discussed for >3mins.? @ -no Was critical care preformed (if so, how long)? @ -no Were there social determinants of health that impacted care today? How? (Homelessness, low income, unemployed, alcoholism, drug addiction, transportation, low edu. Level, literacy, decrease access to med. care, penitentiary, rehab)? @ -none Was there de-escalation of care discussed even if they declined (Discuss DNR or withdrawal of care, Hospice)? DNR status @ -no What co-morbidities impacted this encounter? (DM, HTN, Smoking, COPD, CAD, Cancer, CVA, ARF, Chemo, Hep., AIDS, mental health diagnosis, sleep apnea, morbid obesity)? @ -none Was patient admitted / discharged? Hospital course, mention meds given and route, prescriptions, significant lab abnormalities, going to OR and other pertinent info. @ - Undiagnosed new problem with uncertain prognosis? @ -no Drug Therapy requiring intensive monitoring for toxicity (Heparin, Nitro, Insulin, Cardizem)? @ -no Were any procedures done? @ -no Diagnosis/symptom? @ - Acute, or Chronic, or Acute on Chronic? @ -Acute Uncomplicated (without systemic symptoms) or Complicated (systemic symptoms)? @ -Complicated Side effects of treatment? @ -no Exacerbation, Progression, or Severe Exacerbation? @ -exacerbation Poses a threat to life or bodily function? How? (Chest pain, [place], [place], pneumonia, PE, COPD, DKA, ARF, appy, cholecystitis, CVA, Diverticulitis, Homicidal, Suicidal, threat to staff... and all critical care pts) @ -yes Reevaluation #5: Differential Dyspnea: Coronary syndrome, arrhythmia, tamponade, asthma, COPD, pulmonary embolism, pneumonia, pneumothorax, pulmonary effusion, anaphylaxis, diabetic ketoacidosis, flailed chest, pulmonary contusion, diaphragmatic rupture, anemia, neuromuscular, this is not meant to be an all-inclusive list. Differential Chest Pain: Stable Angina, Unstable Angina, STEMI, NSTEMI Aortic Dissection, Pneumothorax, Musculoskeletal, Esophageal Spasm GERD, Cholecystitis, Pancreatitis, Zoster, this is not meant to be an all-inclusive list. - Consultations Consultation #1: With [facility] who agrees to admit this patient Medical Decision Making - Medical Decision Making 54 female to the ER for evaluation of dyspnea with chest pain. Patient has had fevers for a few days, does not feel comfortable discharge home - Lab Data Result diagrams: 10/31/24 01:11 10/31/24 01:11 Lab Results 10/31/24 10/31/24 10/31/24 Range/Units 01:11 01:11 01:11 WBC 7.2 (3.8-10.6) k/uL RBC 3.89 (3.80-5.40) m/uL Hgb 11.7 (11.4-16.0) gm/dL Hct 35.3 (34.0-46.0) % MCV 90.6 (80.0-100.0) fL MCH 30.1 (25.0-35.0) pg MCHC 33.2 (31.0-37.0) g/dL RDW 16.0 H (11.5-15.5) % Plt Count 236 (150-450) k/uL MPV 9.3 Neutrophils % 51 % Lymphocytes % 37 % Monocytes % 7 % Eosinophils % 1 % Basophils % 1 % Neutrophils # 3.7 (1.3-7.7) k/uL Lymphocytes # 2.7 (1.0-4.8) k/uL Monocytes # 0.5 (0-1.0) k/uL Eosinophils # 0.1 (0-0.7) k/uL Basophils # 0.0 (0-0.2) k/uL Anisocytosis Slight PT 11.4 (10.0-12.5) sec INR 1.0 (<1.2) APTT 23.6 (22.0-30.0) sec Sodium 142 (137-145) mmol/L Potassium 4.1 (3.5-5.1) mmol/L Chloride 107 (98-107) mmol/L Carbon Dioxide 17 L (22-30) mmol/L Anion Gap 18 mmol/L BUN 22 H (7-17) mg/dL Creatinine 0.77 (0.52-1.04) mg/dL Est GFR (CKD-EPI)AfAm >90 (>60 ml/min/1.73 sqM) Est GFR (CKD-EPI)NonAf 88 (>60 ml/min/1.73 sqM) Glucose 120 H (74-99) mg/dL Plasma Lactic Acid Tera (0.7-2.0) mmol/L Calcium 9.8 (8.4-10.2) mg/dL Magnesium 1.9 (1.6-2.3) mg/dL Total Bilirubin 0.6 (0.2-1.3) mg/dL AST 30 (14-36) U/L ALT 24 (4-34) U/L Alkaline Phosphatase 112 (38-126) U/L Troponin I (0.000-0.034) ng/mL NT-Pro-B Natriuret Pep 46 pg/mL Total Protein 11.8 H (6.3-8.2) g/dL Albumin 3.8 (3.5-5.0) g/dL Acetone, Qual (Negative) Influenza Type A (PCR) (Not Detectd) Influenza Type B (PCR) (Not Detectd) RSV (PCR) (Not Detectd) SARS-CoV-2 (PCR) (Not Detectd) 10/31/24 10/31/24 10/31/24 Range/Units 01:11 01:11 01:11 WBC (3.8-10.6) k/uL RBC (3.80-5.40) m/uL Hgb (11.4-16.0) gm/dL Hct (34.0-46.0) % MCV (80.0-100.0) fL MCH (25.0-35.0) pg MCHC (31.0-37.0) g/dL RDW (11.5-15.5) % Plt Count (150-450) k/uL MPV Neutrophils % % Lymphocytes % % Monocytes % % Eosinophils % % Basophils % % Neutrophils # (1.3-7.7) k/uL Lymphocytes # (1.0-4.8) k/uL Monocytes # (0-1.0) k/uL Eosinophils # (0-0.7) k/uL Basophils # (0-0.2) k/uL Anisocytosis PT (10.0-12.5) sec INR (<1.2) APTT (22.0-30.0) sec Sodium (137-145) mmol/L Potassium (3.5-5.1) mmol/L Chloride (98-107) mmol/L Carbon Dioxide (22-30) mmol/L Anion Gap mmol/L BUN (7-17) mg/dL Creatinine (0.52-1.04) mg/dL Est GFR (CKD-EPI)AfAm (>60 ml/min/1.73 sqM) Est GFR (CKD-EPI)NonAf (>60 ml/min/1.73 sqM) Glucose (74-99) mg/dL Plasma Lactic Acid Tera 1.2 (0.7-2.0) mmol/L Calcium (8.4-10.2) mg/dL Magnesium (1.6-2.3) mg/dL Total Bilirubin (0.2-1.3) mg/dL AST (14-36) U/L ALT (4-34) U/L Alkaline Phosphatase (38-126) U/L Troponin I <0.012 (0.000-0.034) ng/mL NT-Pro-B Natriuret Pep pg/mL Total Protein (6.3-8.2) g/dL Albumin (3.5-5.0) g/dL Acetone, Qual Positive (Negative) Influenza Type A (PCR) (Not Detectd) Influenza Type B (PCR) (Not Detectd) RSV (PCR) (Not Detectd) SARS-CoV-2 (PCR) (Not Detectd) 10/31/24 Range/Units 02:48 WBC (3.8-10.6) k/uL RBC (3.80-5.40) m/uL Hgb (11.4-16.0) gm/dL Hct (34.0-46.0) % MCV (80.0-100.0) fL MCH (25.0-35.0) pg MCHC (31.0-37.0) g/dL RDW (11.5-15.5) % Plt Count (150-450) k/uL MPV Neutrophils % % Lymphocytes % % Monocytes % % Eosinophils % % Basophils % % Neutrophils # (1.3-7.7) k/uL Lymphocytes # (1.0-4.8) k/uL Monocytes # (0-1.0) k/uL Eosinophils # (0-0.7) k/uL Basophils # (0-0.2) k/uL Anisocytosis PT (10.0-12.5) sec INR (<1.2) APTT (22.0-30.0) sec Sodium (137-145) mmol/L Potassium (3.5-5.1) mmol/L Chloride (98-107) mmol/L Carbon Dioxide (22-30) mmol/L Anion Gap mmol/L BUN (7-17) mg/dL Creatinine (0.52-1.04) mg/dL Est GFR (CKD-EPI)AfAm (>60 ml/min/1.73 sqM) Est GFR (CKD-EPI)NonAf (>60 ml/min/1.73 sqM) Glucose (74-99) mg/dL Plasma Lactic Acid Tera (0.7-2.0) mmol/L Calcium (8.4-10.2) mg/dL Magnesium (1.6-2.3) mg/dL Total Bilirubin (0.2-1.3) mg/dL AST (14-36) U/L ALT (4-34) U/L Alkaline Phosphatase (38-126) U/L Troponin I (0.000-0.034) ng/mL NT-Pro-B Natriuret Pep pg/mL Total Protein (6.3-8.2) g/dL Albumin (3.5-5.0) g/dL Acetone, Qual (Negative) Influenza Type A (PCR) Not Detected (Not Detectd) Influenza Type B (PCR) Not Detected (Not Detectd) RSV (PCR) Not Detected (Not Detectd) SARS-CoV-2 (PCR) Not Detected (Not Detectd) - EKG Data -: EKG Interpreted by Me (EKG is sinus 86 MS 126 QRS 75 QTc 380) - Radiology Data Radiology results: report reviewed (X-rays negative for acute disease), image reviewed Disposition Clinical Impression: Weakness, Viral syndrome, Fever, Dehydration, Chest pain Disposition: HOME SELF-CARE Condition: Good Instructions (If sedation given, give patient instructions): Chest Pain (ED), Viral Syndrome (ED) Is patient prescribed a controlled substance at d/c from ED?: No Referrals: Adrienne Patino MD [Primary Care Provider] - 1-2 days Time of Disposition: 05:10
[2024-10-31] MEDS: SODIUM CHLORIDE 0.9% 500 ML 500 ML IV STA (01:39)
[2024-10-31] MEDS: DEXAMETHASONE SOD PHOSPHATE 10 MG/ML 1 ML VIAL IVP STA (01:39)
[2024-10-31] MEDS: KETOROLAC 15 MG/ML 1 ML VIAL IVP STA (01:39)
[2024-10-31] MEDS: SODIUM CHLORIDE 0.9% 1,000 ML IV STA ×2 (01:39→02:59)
[2024-10-31 01:40] LABS: Partial Thromboplastin Time 23.6 sec (22.0-30.0); Prothrombin Time 11.4 sec (10.0-12.5)
[2024-10-31] MEDS: ACETAMINOPHEN IV (For NPO) 1,000 MG in EMPTY BAG 1 BAG IVPB ONE (01:40)
[2024-10-31 01:41] LABS: Anisocytosis Slight; Basophils % (A) 1 %; Eosinophils # (A) 0.1 k/uL (0-0.7); Eosinophils % (A) 1 %; HCT 35.3 % (34.0-46.0); HGB 11.7 gm/dL (11.4-16.0); Lymphocytes # (A) 2.7 k/uL (1.0-4.8); Lymphocytes % (A) 37 %; MCH 30.1 pg (25.0-35.0); MCHC 33.2 g/dL (31.0-37.0); MCV 90.6 fL (80.0-100.0); Mean Platelet Volume 9.3; Monocytes # (A) 0.5 k/uL (0-1.0); Monocytes % (A) 7 %; Neutrophils # (A) 3.7 k/uL (1.3-7.7); Neutrophils % (A) 51 %; Platelet Count 236 k/uL (150-450); RBC 3.89 m/uL (3.80-5.40); WBC 7.2 k/uL (3.8-10.6)
[2024-10-31 01:42] LABS: ALT 24 U/L (4-34); African American GFR (CKD) >90 (>60 ml/min/1.73 sqM); Albumin 3.8 g/dL (3.5-5.0); Anion Gap 18 mmol/L; Blood Urea Nitrogen 22 mg/dL (7-17); Calcium 9.8 mg/dL (8.4-10.2); Carbon Dioxide 17 mmol/L (22-30); Chloride 107 mmol/L (98-107); Glucose 120 mg/dL (74-99); Non-African American GFR(CKD) 88 (>60 ml/min/1.73 sqM); Sodium 142 mmol/L (137-145); Total Bilirubin 0.6 mg/dL (0.2-1.3)
[2024-10-31 01:51] LABS: NT-Pro-B-Type Natriuretic Pept 46 pg/mL
[2024-10-31 01:55] LABS: AST 30 U/L (14-36); Alkaline Phosphatase 112 U/L (38-126); Magnesium 1.9 mg/dL (1.6-2.3); Potassium 4.1 mmol/L (3.5-5.1); Total Protein 11.8 g/dL (6.3-8.2)
[2024-10-31] MEDS: HYDROmorphone 1 MG/ML 1 ML SYRINGE IVP STA (02:55)
--- NOTE | 2024-10-31 04:35 | XR ---
EXAM: XR Chest, 2 Views CLINICAL HISTORY: ITS.REASON XR Reason: difficulty breathing TECHNIQUE: Frontal and lateral views of the chest. COMPARISON: No relevant prior studies available. FINDINGS: Lungs: No consolidation or mass. Pleural space: No effusion. Heart: cardiomegaly. Bones/joints: No acute findings. IMPRESSION: No acute cardiopulmonary process.
[2024-10-31 05:03] LABS: Influenza A Not Detected (Not Detectd); Influenza B Not Detected (Not Detectd); RSV Not Detected (Not Detectd)
[2024-10-31] MEDS ORDERED: NALOXONE 0.4 MG/ML 1 ML VIAL IV PRN (05:18)
[2024-10-31] MEDS ORDERED: DEXTROSE 5%-0.45% NACL 1,000 ML IV ONE (05:18)
[2024-10-31] MEDS ORDERED: ONDANSETRON 4 MG/2 ML VIAL IVP PRN (05:18)
[2024-10-31] MEDS ORDERED: ACETAMINOPHEN TAB 325 MG TAB PO PRN (05:18)
[2024-10-31] MEDS ORDERED: KETOROLAC 15 MG/ML 1 ML VIAL IVP PRN (05:18)
[2024-10-31] MEDS ORDERED: MORPHINE SULFATE 4 MG/ML SYRINGE IV PRN (05:18)
[2024-11-01 03:28] VITALS: BP 152/96; PULSE 89; RESP 18; TEMP 98
== END 2024-10-31 05:46 | disposition home or self-care (01) ==
LOC: EC 00:52
DX: R53.1 Weakness (principal); R07.9 Chest pain, unspecified; B34.9 Viral infection, unspecified; E86.0 Dehydration; Z87.891 Personal history of nicotine dependence
CPT/HCPCS: 36415; 93005; 83880; 80053; 82009; 83605; 83735; 84484; 85025; 85610; 85730; 87636; 71046; 99285; 96374; 96375 ×3; 96361 ×2; J1100; J1171; J0131; J1885

== ENCOUNTER 2024-11-03 11:08 | Inpatient (IN) | payer OTHER ==
[2024-11-03 12:33] LABS: Basophils # (A) 0.1 k/uL (0-0.2); Basophils % (A) 1 %; Eosinophils # (A) 0.1 k/uL (0-0.7); Eosinophils % (A) 1 %; HCT 37.2 % (34.0-46.0); HGB 12.3 gm/dL (11.4-16.0); Lymphocytes # (A) 2.5 k/uL (1.0-4.8); Lymphocytes % (A) 33 %; MCH 30.2 pg (25.0-35.0); MCHC 33.1 g/dL (31.0-37.0); MCV 91.3 fL (80.0-100.0); Mean Platelet Volume 6.9; Monocytes # (A) 0.4 k/uL (0-1.0); Monocytes % (A) 5 %; Neutrophils # (A) 4.6 k/uL (1.3-7.7); Neutrophils % (A) 60 %; Platelet Count 436 k/uL (150-450); RBC 4.08 m/uL (3.80-5.40); RDW 15.5 % (11.5-15.5); WBC 7.6 k/uL (3.8-10.6)
[2024-11-03 12:39] LABS: ALT 29 U/L (4-34); AST 28 U/L (14-36); African American GFR (CKD) 85 (>60 ml/min/1.73 sqM); Albumin 4.1 g/dL (3.5-5.0); Alkaline Phosphatase 101 U/L (38-126); Anion Gap 12 mmol/L; Blood Urea Nitrogen 19 mg/dL (7-17); Calcium 9.9 mg/dL (8.4-10.2); Carbon Dioxide 26 mmol/L (22-30); Chloride 102 mmol/L (98-107); Glucose 110 mg/dL (74-99); Non-African American GFR(CKD) 74 (>60 ml/min/1.73 sqM); Potassium 3.8 mmol/L (3.5-5.1); Sodium 140 mmol/L (137-145); Total Bilirubin 0.4 mg/dL (0.2-1.3)
[2024-11-03 12:50] LABS: Total Protein 11.9 g/dL (6.3-8.2)
[2024-11-03 15:14] LABS: Appearance,Urine Cloudy (Clear); Bacteria,Urine Rare /hpf; Bilirubin,Urine Negative (Negative); Blood,Urine Negative (Negative); Color,Urine Yellow; Glucose,Urine (UA) Negative (Negative); Ketones,Urine 2+ (Negative); Leukocyte Esterase,Urine Trace (Negative); Mucus,Urine Moderate /hpf; Nitrite,Urine Negative (Negative); PH, Urine 5.5 (5.0-8.0); Protein,Urine Trace (Negative); Specific Gravity,Urine 1.021 (1.001-1.035); Squamous Epithelial Cell,Urine 8 /hpf (0-4); Urobilinogen,Urine <2.0 mg/dL (<2.0); WBC,Urine 7 /hpf (0-5)
[2024-11-03] MEDS ORDERED: NALOXONE 0.4 MG/ML 1 ML VIAL IV PRN (16:23)
--- NOTE | 2024-11-03 16:23 | ED ---
General Adult HPI - General Chief complaint: Recheck/Abnormal Lab/Rx Stated complaint: Abn labs Time Seen by Provider: 11/03/24 11:30 Source: patient Mode of arrival: ambulatory Limitations: no limitations - History of Present Illness Initial comments: 54-year-old female with past medical history of valvular disease who presents to the emergency department reporting chest pain, back pain, shortness of breath for the past 5 days. Patient previously seen in the emergency department on the with same complaint. Workup was performed. Patient found to be acetone positive with high protein. Patient was discharged home. Continues to have symptoms. Saw her primary care doctor today who recommended that she come back to the hospital for continued chest pain. Patient denies fevers, chills or cough. Admits nausea without vomiting. Decreased oral intake. No other alleviating, precipitating or modifying factors - Related Data Home Medications Medication Instructions Recorded Confirmed [id number] [id number] 2 tab PO DAILY PRN 04/30/16 07/12/20 [Excedrin] Docusate Oral Soln [Colace Oral 300 mg PO ONCE PRN 07/12/20 07/12/20 Soln] Previous Rx's Medication Instructions Recorded Amoxic-Pot Clav 875-125Mg 1 tab PO BID 10 Days #20 tab 04/06/22 [Augmentin 875-125] Azithromycin [Zithromax Z Pack] 1 tab PO DIRECTED #6 tab 04/06/22 Allergies Allergy/AdvReac Type Severity Reaction Status Date / Time No Known Allergies Allergy Verified 11/03/24 11:31 Review of Systems ROS Statement: Those systems with pertinent positive or pertinent negative responses have been documented in the HPI. ROS Other: All systems not noted in ROS Statement are negative. 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, kidney stones History of Any Multi-Drug Resistant Organisms: None Reported Past Surgical History: Cholecystectomy, Orthopedic Surgery, Tubal Ligation Additional Past Surgical History / Comment(s): lap, left knee scope Past Anesthesia/Blood Transfusion Reactions: No Reported Reaction Past Psychological History: No Psychological Hx Reported Smoking Status: Former smoker Past Alcohol Use History: Occasional Past Drug Use History: None Reported - Past Family History Father Family Medical History: Cancer Additional Family Medical History / Comment(s): prostate Mother Family Medical History: Hypertension General Exam Limitations: no limitations Course Vital Signs 11/03/24 11/03/24 11/03/24 11:29 13:19 15:00 Temperature 98.3 F 98.1 F Pulse Rate 84 79 Pulse Rate [ 82 Apical] Respiratory 16 16 Rate Blood Pressure 131/87 126/84 O2 Sat by Pulse 96 97 Oximetry Medical Decision Making - Medical Decision Making Was pt. sent in by a medical professional or institution (, ERNESTO, PUBLIC POLICY COORDINATOR, urgent care, hospital, or long term...) When possible be specific @ -[No] Did you speak to anyone other than the patient for history (EMS, parent, family, police, friend...)? What history was obtained from this source @ -[No] Did you review nursing and triage notes (agree or disagree)? Why? @ -[I reviewed and agree with nursing and triage notes] Were old charts reviewed (outside hosp., previous admission, EMS record, old EKG, old radiological studies, urgent care reports/EKG's, long term records)? Report findings @ -[No old charts were reviewed] Differential Diagnosis (chest pain, altered mental status, abdominal pain women, abdominal pain men, vaginal bleeding, weakness, fever, dyspnea, syncope, headache, dizziness, GI bleed, back pain, seizure, CVA, palpatations, mental health, musculoskeletal)? @ -[not applicable] EKG interpreted by me (3pts min.). @ -Yes and demonstrates sinus rhythm with rate of 67. MI interval 141. QRS 82. QTc of 376. No acute ST segment elevations or depressions X-rays interpreted by me (1pt min.). @ -[None done] CT interpreted by me (1pt min.). @ -[None done] U/S interpreted by me (1pt. min.). @ -[None done] What testing was considered but not performed or refused? (CT, X-rays, U/S, labs)? Why? @ -[None] What meds were considered but not given or refused? Why? @ -[None] Did you discuss the management of the patient with other professionals (professionals i.e. ERNESTO Yo, PUBLIC POLICY COORDINATOR, lab, RT, psych nurse, social work therapist, medtronics technician, teacher, hospital chief executive officer, case consultant)? Give summary @ -[No] Was smoking cessation discussed for >3mins.? @ -[No] Was critical care preformed (if so, how long)? @ -[No] Were there social determinants of health that impacted care today? How? (Homelessness, low income, unemployed, alcoholism, drug addiction, transportation, low edu. Level, literacy, decrease access to med. care, mcc, rehab)? @ -[No] Was there de-escalation of care discussed even if they declined (Discuss DNR or withdrawal of care, Hospice)? DNR status @ -[No] What co-morbidities impacted this encounter? (DM, HTN, Smoking, COPD, CAD, Cancer, CVA, ARF, Chemo, Hep., AIDS, mental health diagnosis, sleep apnea, morbid obesity)? @ -[None] Was patient admitted / discharged? Hospital course, mention meds given and route, prescriptions, significant lab abnormalities, going to OR and other pertinent info. @ -[hospital course] Undiagnosed new problem with uncertain prognosis? @ -[No] Drug Therapy requiring intensive monitoring for toxicity (Heparin, Nitro, Insulin, Cardizem)? @ -[No] Were any procedures done? @ -[No] Diagnosis/symptom? @ -[default] Acute, or Chronic, or Acute on Chronic? @ -[default] Uncomplicated (without systemic symptoms) or Complicated (systemic symptoms)? @ -[default] Side effects of treatment? @ -[No] Exacerbation, Progression, or Severe Exacerbation? @ -[No] Poses a threat to life or bodily function? How? (Chest pain, USA, VT, pneumonia, PE, COPD, DKA, ARF, appy, cholecystitis, CVA, Diverticulitis, Homicidal, Suicidal, threat to staff... and all critical care pts) @ -[No] - Lab Data Result diagrams: 11/03/24 11:53 11/03/24 11:53 Lab Results 11/03/24 11/03/24 11/03/24 Range/Units 11:53 11:53 13:57 WBC 7.6 (3.8-10.6) k/uL RBC 4.08 (3.80-5.40) m/uL Hgb 12.3 (11.4-16.0) gm/dL Hct 37.2 (34.0-46.0) % MCV 91.3 (80.0-100.0) fL MCH 30.2 (25.0-35.0) pg MCHC 33.1 (31.0-37.0) g/dL RDW 15.5 (11.5-15.5) % Plt Count 436 (150-450) k/uL MPV 6.9 Neutrophils % 60 % Lymphocytes % 33 % Monocytes % 5 % Eosinophils % 1 % Basophils % 1 % Neutrophils # 4.6 (1.3-7.7) k/uL Lymphocytes # 2.5 (1.0-4.8) k/uL Monocytes # 0.4 (0-1.0) k/uL Eosinophils # 0.1 (0-0.7) k/uL Basophils # 0.1 (0-0.2) k/uL Sodium 140 (137-145) mmol/L Potassium 3.8 (3.5-5.1) mmol/L Chloride 102 (98-107) mmol/L Carbon Dioxide 26 (22-30) mmol/L Anion Gap 12 mmol/L BUN 19 H (7-17) mg/dL Creatinine 0.89 (0.52-1.04) mg/dL Est GFR (CKD-EPI)AfAm 85 (>60 ml/min/1.73 sqM) Est GFR (CKD-EPI)NonAf 74 (>60 ml/min/1.73 sqM) Glucose 110 H (74-99) mg/dL Calcium 9.9 (8.4-10.2) mg/dL Total Bilirubin 0.4 (0.2-1.3) mg/dL AST 28 (14-36) U/L ALT 29 (4-34) U/L Alkaline Phosphatase 101 (38-126) U/L Troponin I <0.012 (0.000-0.034) ng/mL Total Protein 11.9 H (6.3-8.2) g/dL Albumin 4.1 (3.5-5.0) g/dL Urine Color Urine Appearance (Clear) Urine pH (5.0-8.0) Ur Specific [place] (1.001-1.035) Urine Protein (Negative) Urine Glucose (UA) (Negative) Urine Ketones (Negative) Urine Blood (Negative) Urine Nitrite (Negative) Urine Bilirubin (Negative) Urine Urobilinogen (<2.0) mg/dL Ur Leukocyte Esterase (Negative) Urine WBC (0-5) /hpf Ur Squamous Epith Cells (0-4) /hpf Urine Bacteria (None) /hpf Urine Mucus (None) /hpf Acetone, Qual Negative (Negative) 11/03/24 Range/Units 14:16 WBC (3.8-10.6) k/uL RBC (3.80-5.40) m/uL Hgb (11.4-16.0) gm/dL Hct (34.0-46.0) % MCV (80.0-100.0) fL MCH (25.0-35.0) pg MCHC (31.0-37.0) g/dL RDW (11.5-15.5) % Plt Count (150-450) k/uL MPV Neutrophils % % Lymphocytes % % Monocytes % % Eosinophils % % Basophils % % Neutrophils # (1.3-7.7) k/uL Lymphocytes # (1.0-4.8) k/uL Monocytes # (0-1.0) k/uL Eosinophils # (0-0.7) k/uL Basophils # (0-0.2) k/uL Sodium (137-145) mmol/L Potassium (3.5-5.1) mmol/L Chloride (98-107) mmol/L Carbon Dioxide (22-30) mmol/L Anion Gap mmol/L BUN (7-17) mg/dL Creatinine (0.52-1.04) mg/dL Est GFR (CKD-EPI)AfAm (>60 ml/min/1.73 sqM) Est GFR (CKD-EPI)NonAf (>60 ml/min/1.73 sqM) Glucose (74-99) mg/dL Calcium (8.4-10.2) mg/dL Total Bilirubin (0.2-1.3) mg/dL AST (14-36) U/L ALT (4-34) U/L Alkaline Phosphatase (38-126) U/L Troponin I (0.000-0.034) ng/mL Total Protein (6.3-8.2) g/dL Albumin (3.5-5.0) g/dL Urine Color Yellow Urine Appearance Cloudy H (Clear) Urine pH 5.5 (5.0-8.0) Ur Specific [place] 1.021 (1.001-1.035) Urine Protein Trace H (Negative) Urine Glucose (UA) Negative (Negative) Urine Ketones 2+ H (Negative) Urine Blood Negative (Negative) Urine Nitrite Negative (Negative) Urine Bilirubin Negative (Negative) Urine Urobilinogen <2.0 (<2.0) mg/dL Ur Leukocyte Esterase Trace H (Negative) Urine WBC 7 H (0-5) /hpf Ur Squamous Epith Cells 8 H (0-4) /hpf Urine Bacteria Rare H (None) /hpf Urine Mucus Moderate H (None) /hpf Acetone, Qual (Negative) Disposition Clinical Impression: Chest pain, Dehydration Disposition: [facility] Condition: Stable Is patient prescribed a controlled substance at d/c from ED?: No Referrals: Adrienne Patino MD [Primary Care Provider] - 1-2 days Time of Disposition: 16:23 Decision to Admit Reason: Admit from EC Decision Date: 11/03/24 Decision Time: 16:23
[2024-11-03] MEDS: SODIUM CHLORIDE 0.9% 1,000 ML IV SCH (16:28)
[2024-11-03] MEDS: SODIUM CHLORIDE 0.9% 1,000 ML IV ONE (16:28)
[2024-11-04] MEDS: ASCORBIC ACID 500 MG TAB PO SCH (08:54)
[2024-11-04] MEDS: ASPIRIN 81 MG PO SCH (08:54)
[2024-11-04] MEDS: CYANOCOBALAMIN 500 MCG TAB PO SCH (08:54)
[2024-11-04] MEDS: ESCITALOPRAM 5 MG TAB PO SCH (08:54)
[2024-11-04] MEDS: MULTIVITAMINS, THERA 1 EACH TAB PO SCH (08:54)
[2024-11-04 09:36] LABS: Blood Urea Nitrogen 9.8 mg/dL (9.0-27.0); Calcium 8.2 mg/dL (8.7-10.3); Carbon Dioxide 20.6 mmol/L (21.6-31.8); Chloride 106 mmol/L (96-109); Glucose 89 mg/dL (70-110); Potassium 3.7 mmol/L (3.5-5.5); Sodium 138 mmol/L (135-145)
[2024-11-04 09:56] LABS: Basophils # (A) 0.04 X 10*3/uL (0.00-0.10); Basophils % (A) 0.6 %; Eosinophils % (A) 2.8 %; HCT 33.1 % (37.2-46.3); HGB 10.5 g/dL (12.0-15.0); Lymphocytes # (A) 3.66 X 10*3/uL (0.90-5.00); Lymphocytes % (A) 50.6 %; MCH 29.2 pg (27.0-32.0); MCHC 31.7 g/dL (32.0-37.0); MCV 92.2 FL (80.0-97.0); Mean Platelet Volume 9.1 FL (9.5-12.2); Monocytes # (A) 0.48 X 10*3/uL (0.20-1.00); Monocytes % (A) 6.6 %; NRBC Per 100 WBC 0 X 10*3/uL (0.00-0.01); Neutrophils # (A) 2.84 X 10*3/uL (1.80-7.70); Neutrophils % (A) 39.1 %; Platelet Count 369 X 10*3/uL (140-440); RBC 3.59 X 10*6/uL (4.10-5.20); RDW 16.3 % (11.5-14.5); WBC 7.24 X 10*3/uL (4.50-10.00)
[2024-11-04 14:32] LABS: Magnesium 1.7 mg/dL (1.6-2.3)
[2024-11-04 14:38] LABS: NT-Pro-B-Type Natriuretic Pept 100 pg/mL
[2024-11-04] MEDS: ISOSORBIDE MONONITRATE ER 15 MG TAB PO SCH (18:23)
--- NOTE | 2024-11-04 20:41 | P.HPIM ---
History of Present Illness H&P Date: 11/04/24 Chief Complaint: Weakness 54-year-old female with past medical history of valvular disease who presents to the emergency department reporting chest pain, back pain, shortness of breath for the past 5 days. Patient previously seen in the emergency department on the with same complaint. Workup was performed. Patient found to be acetone positive with high protein. Patient was discharged home. Continues to have symptoms. Saw her primary care doctor today who recommended that she come back to the hospital for continued chest pain. Patient denies fevers, chills or cough. Admits nausea without vomiting. Decreased oral intake. No other alleviating, precipitating or modifying factors Workup completed in ED reveals a WBC of 7.6, hemoglobin of 12.3 and platelet count of 436, sodium 130, potassium 3.8, BUNs/creatinine of 19/0.89, troponin of less than 0.012 UA reveals 2+ ketones with rare bacteria and 7 WBCs and elevated squamous cells -Given elevated ketones/acetone, patient is being admitted for dehydration and further workup of chest pain Review of Systems REVIEW OF SYSTEMS: CONSTITUTIONAL: No fever, no malaise, no fatigue. HEENT: No recent visual problems or hearing problems. Denied any sore throat. CARDIOVASCULAR: No chest pain, orthopnea, PND, no palpitations, no syncope. PULMONARY: No shortness of breath, no cough, no hemoptysis. GASTROINTESTINAL: No diarrhea, no nausea, no vomiting, no abdominal pain. NEUROLOGICAL: No headaches, no weakness, no numbness. HEMATOLOGICAL: Denies any bleeding or petechiae. GENITOURINARY: Denies any burning micturition, frequency, or urgency. MUSCULOSKELETAL/RHEUMATOLOGICAL: Denies any joint pain, swelling, or any muscle pain. ENDOCRINE: Denies any polyuria or polydipsia. The rest of the 14-point review of systems is negative. 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, kidney stones History of Any Multi-Drug Resistant Organisms: None Reported Past Surgical History: Cholecystectomy, Orthopedic Surgery, Tubal Ligation Additional Past Surgical History / Comment(s): lap, left knee scope Past Anesthesia/Blood Transfusion Reactions: No Reported Reaction Past Psychological History: No Psychological Hx Reported Smoking Status: Never smoker Past Alcohol Use History: Occasional Past Drug Use History: None Reported - Past Family History Father Family Medical History: Cancer Additional Family Medical History / Comment(s): prostate Mother Family Medical History: Hypertension Medications and Allergies Home Medications Medication Instructions Recorded Confirmed Type Ascorbic Acid [Vitamin C] 1,000 mg PO DAILY 11/03/24 11/03/24 History Aspirin 81 mg PO DAILY 11/03/24 11/03/24 History Cyanocobalamin (Vitamin B-12) 1,000 mcg PO DAILY 11/03/24 11/03/24 History [Vitamin B-12] Escitalopram [Lexapro] 5 mg PO DAILY 11/03/24 11/03/24 History Multivitamins, Thera [Multivitamin 1 tab PO DAILY 11/03/24 11/03/24 History (formulary)] lysine HCL [l-Lysine] 1,000 mg PO DAILY 11/03/24 11/03/24 History Allergies Allergy/AdvReac Type Severity Reaction Status Date / Time strawberry Allergy Rash/Hives Verified 11/03/24 16:40 Physical Exam Vitals: Vital Signs Temp Pulse Pulse Pulse Pulse Pulse Pulse 11/04/24 11:12 80 91 79 11/04/24 07:10 98.2 F 72 11/04/24 00:34 98 F 79 11/03/24 22:30 98.1 F 73 11/03/24 17:17 69 11/03/24 17:10 66 11/03/24 16:39 98.3 F 77 11/03/24 15:00 98.1 F 79 Resp BP BP BP BP BP BP 11/04/24 11:12 17 155/99 144/89 135/87 11/04/24 07:10 17 126/75 11/04/24 00:34 18 130/82 11/03/24 22:30 19 135/76 11/03/24 17:17 17 140/77 11/03/24 17:10 11/03/24 16:39 16 130/86 11/03/24 15:00 16 126/84 Pulse Ox 11/04/24 11:12 97 11/04/24 07:10 95 11/04/24 00:34 97 11/03/24 22:30 94 L 11/03/24 17:17 97 11/03/24 17:10 11/03/24 16:39 98 11/03/24 15:00 97 Intake and Output 11/03/24 11/04/24 11/04/24 22:59 06:59 14:59 Other: # Voids 2 Weight 87.543 kg - Constitutional General appearance: Present: average body habitus, cooperative, no acute distress - EENT Eyes: Present: anicteric sclerae, EOMI, PERRLA, normal appearance ENT: Present: hearing grossly normal, normal oropharynx Ears: bilateral: normal - Neck Neck: Present: normal ROM. Absent: lymphadenopathy, rigidity, thyromegaly Carotids: negative: bruit present Thyroid: bilateral: normal size, negative: enlarged, nodule - Respiratory Respiratory: bilateral: CTA, negative: rales, rhonchi, wheezing - Cardiovascular Rhythm: regular Heart sounds: normal: S1, S2 Abnormal Heart Sounds: Absent: systolic murmur, diastolic murmur - Gastrointestinal General gastrointestinal: Present: normal bowel sounds, soft. Absent: distended, organomegaly, tenderness - Genitourinary Genitourinary Comment(s): deferred - Integumentary Integumentary: Present: normal turgor. Absent: jaundiced, rash, ulcer - Neurologic Neurologic: Present: CNII-XII intact. Absent: focal deficits - Musculoskeletal Musculoskeletal: Present: gait normal, strength equal bilaterally - Psychiatric Psychiatric: Present: A&O x's 3, appropriate affect, intact judgment & insight Results CBC & Chem 7: 11/04/24 04:38 11/04/24 04:38 Labs: Abnormal Lab Results - Last 24 Hours (Table) 11/03/24 11/04/24 11/04/24 Range/Units 14:16 04:38 04:38 RBC 3.59 L (4.10-5.20) X 10*6/uL Hgb 10.5 L (12.0-15.0) g/dL Hct 33.1 L (37.2-46.3) % MCHC 31.7 L (32.0-37.0) g/dL RDW 16.3 H (11.5-14.5) % MPV 9.1 L (9.5-12.2) FL Carbon Dioxide 20.6 L (21.6-31.8) mmol/L Calcium 8.2 L (8.7-10.3) mg/dL Urine Appearance Cloudy H (Clear) Urine Protein Trace H (Negative) Urine Ketones 2+ H (Negative) Ur Leukocyte Esterase Trace H (Negative) Urine WBC 7 H (0-5) /hpf Ur Squamous Epith Cells 8 H (0-4) /hpf Urine Bacteria Rare H (None) /hpf Urine Mucus Moderate H (None) /hpf Assessment and Plan Assessment: 1. Chest pain rule out acute coronary syndrome -Patient is admitted to telemetry; monitor EKG and trend troponin -Will recommend 2D echo -Consult cardiology 2. Weakness/inability to walk -- Patient reports it started about a week ago and has gotten progressively worse -Will order CT of the head; consult neurology 3. Dehydration; patient has been placed on IV fluids in form of half-normal saline at rate of 75 cc an hour; will monitor strict GORGE's and electrolytes 4. Vitamin B12 deficiency; continue with home dose of vitamin B-12 1000 mcg daily 5. Depression; Lexapro 5 mg daily DVT prophylaxis; SCDs CODE STATUS; full code
[2024-11-04] MEDS: ATORVASTATIN 40 MG TAB PO SCH (20:51)
--- NOTE | 2024-11-04 21:19 | CT ---
EXAMINATION TYPE: CT brain wo con DATE OF EXAM: 11/04/2024 8:46 PM COMPARISON: None. CLINICAL INDICATION: Female, 54 years old with history of new onset dizziness/weakness, New onset diz ziness/weakness. TECHNIQUE: Brain: Axial CT images of the brain were obtained with coronal and sagittal reformats created and rev iewed. Contrast used: None. Oral contrast used: None. CT DLP: 1054.9 mGycm, Automated exposure control for dose reduction was used. FINDINGS: Brain: Extra-axial spaces: No abnormal extra-axial fluid collections. Ventricular system: Within normal limits Cerebral parenchyma: Asymmetric right frontal lobe subcortical white matter changes series 3 image 39 . No acute intraparenchymal hemorrhage or mass effect. The fang-white junction is well differentiate d. Cerebellum: Unremarkable. Mass effect: No evidence of midline shift. Intracranial vasculature: unremarkable Soft tissues: Normal. Calvarium/osseous structures: No depressed skull fracture. Paranasal sinuses and mastoid air cells: Mild scattered paranasal sinus disease. Visualized orbits: Orbital contents are intact. IMPRESSION: Right frontal lobe asymmetric white matter changes consider further evaluation with MRI to exclude. [facility], , 11/04/2024 9:16 PM
--- NOTE | 2024-11-04 23:43 | P.CRDCN ---
History of Present Illness Consult date: 11/04/24 History of present illness: HISTORY OF PRESENTING ILLNESS: 54-year-old female with no significant cardiovascular history. She presented to the hospital because of substernal chest pressure and shortness of breath symptoms. She presented to the ER on 31 October with similar complaints when initial workup was negative she was discharged. Because of ongoing symptoms she presented to the hospital again. Admission Cardiac Labs: Hemoglobin 12.3, BUN 19, creatinine 0.9, troponin x 1 was negative, NT-proBNP 100, TSH 0.3, HbA1c 5.9 Admission testing: EKG shows normal sinus rhythm heart rate 67 bpm, Brain CT does not show any acute intracranial process REVIEW OF SYSTEMS: 14 point review of system is negative except what is mentioned above in HPI. PHYSICAL EXAMINATION: Neck: Brisk carotid upstroke, no jugular venous distention. Lungs: Clear to auscultation. Heart: Regular rate and rhythm, S1-S2, , no murmur or rub. Abdomen: Soft nontender, positive bowel sounds. Extremities: No edema, intact distal pulses. Neuro: Alert, oritented, no focal deficits. Detailed neuro exam was not performed. ASSESSMENT: # Atypical chest pain, ruled out of ACS # Prediabetes # Obesity PLAN: Continue aspirin, Lipitor Start Imdur 15 mg daily Obtain echocardiogram Obtain treadmill echo stress test Further recommendations to follow Duy Gross MD, FACC, RPVI Thank you for allowing [facility] to participate in this patient's care. Feel free to reach out in case of any followup questions. 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, kidney stones History of Any Multi-Drug Resistant Organisms: None Reported Past Surgical History: Cholecystectomy, Orthopedic Surgery, Tubal Ligation Additional Past Surgical History / Comment(s): lap, left knee scope Past Anesthesia/Blood Transfusion Reactions: No Reported Reaction Past Psychological History: No Psychological Hx Reported Smoking Status: Never smoker Past Alcohol Use History: Occasional Past Drug Use History: None Reported - Past Family History Father Family Medical History: Cancer Additional Family Medical History / Comment(s): prostate Mother Family Medical History: Hypertension Medications and Allergies Home Medications Medication Instructions Recorded Confirmed Type Ascorbic Acid [Vitamin C] 1,000 mg PO DAILY 11/03/24 11/03/24 History Aspirin 81 mg PO DAILY 11/03/24 11/03/24 History Cyanocobalamin (Vitamin B-12) 1,000 mcg PO DAILY 11/03/24 11/03/24 History [Vitamin B-12] Escitalopram [Lexapro] 5 mg PO DAILY 11/03/24 11/03/24 History Multivitamins, Thera [Multivitamin 1 tab PO DAILY 11/03/24 11/03/24 History (formulary)] lysine HCL [l-Lysine] 1,000 mg PO DAILY 11/03/24 11/03/24 History Allergies Allergy/AdvReac Type Severity Reaction Status Date / Time strawberry Allergy Rash/Hives Verified 11/03/24 16:40 Physical Exam Vitals: Vital Signs Temp Pulse Pulse Pulse Pulse Resp BP 11/04/24 19:52 98.8 F 88 16 11/04/24 14:15 98.3 F 81 17 11/04/24 11:12 80 91 79 17 155/99 11/04/24 07:10 98.2 F 72 17 11/04/24 00:34 98 F 79 18 BP BP BP BP Pulse Ox 11/04/24 19:52 114/78 95 11/04/24 14:15 158/95 96 11/04/24 11:12 144/89 135/87 97 11/04/24 07:10 126/75 95 11/04/24 00:34 130/82 97 Intake and Output 11/04/24 11/04/24 11/05/24 14:59 22:59 06:59 Other: # Voids 6 # Bowel Movements 2 Results 11/04/24 04:38 11/04/24 04:38 CBC 11/04/24 Range/Units 04:38 WBC 7.24 (4.50-10.00) X 10*3/uL RBC 3.59 L (4.10-5.20) X 10*6/uL Hgb 10.5 L (12.0-15.0) g/dL Hct 33.1 L (37.2-46.3) % Plt Count 369 (140-440) X 10*3/uL Comprehensive Metabolic Panel 11/04/24 Range/Units 04:38 Sodium 138 (135-145) mmol/L Potassium 3.7 (3.5-5.5) mmol/L Chloride 106 (96-109) mmol/L Carbon Dioxide 20.6 L (21.6-31.8) mmol/L BUN 9.8 (9.0-27.0) mg/dL Creatinine 0.7 (0.6-1.5) mg/dL Glucose 89 (70-110) mg/dL Calcium 8.2 L (8.7-10.3) mg/dL Current Medications Generic Name Dose Route Start Last Admin Trade Name Freq PRN Reason Stop Dose Admin Acetaminophen 650 mg 11/03/24 16:23 Acetaminophen Tab 325 Mg Tab PO Q6HR PRN Mild Pain or Fever > 100.5 Ascorbic Acid 1,000 mg 11/04/24 09:00 11/04/24 08:54 Ascorbic Acid 500 Mg Tab PO 1,000 mg DAILY DARIANA Administration Aspirin 81 mg 11/04/24 09:00 11/04/24 08:54 Aspirin 81 Mg PO 81 mg DAILY DARIANA Administration Atorvastatin Calcium 40 mg 11/04/24 21:00 11/04/24 20:51 Atorvastatin 40 Mg Tab PO 40 mg HS DARIANA Administration Cyanocobalamin 1,000 mcg 11/04/24 09:00 11/04/24 08:54 Cyanocobalamin 500 Mcg Tab PO 1,000 mcg DAILY DARIANA Administration Escitalopram Oxalate 5 mg 11/04/24 09:00 11/04/24 08:54 Escitalopram 5 Mg Tab PO 5 mg DAILY DARIANA Administration Isosorbide Mononitrate 15 mg 11/04/24 14:00 11/04/24 18:23 Isosorbide Mononitrate Er 15 Mg Tab PO Not Given DAILY DARIANA Multivitamins 1 each 11/04/24 09:00 11/04/24 08:54 Multivitamins, Thera 1 Each Tab PO 1 each DAILY DARIANA Administration Naloxone HCl 0.2 mg 11/03/24 16:23 Naloxone 0.4 Mg/Ml 1 Ml Vial IV Q2M PRN Opioid Reversal Intake and Output 11/04/24 11/04/24 11/05/24 14:59 22:59 06:59 Other: # Voids 6 # Bowel Movements 2 11/04/24 04:38 11/04/24 04:38
[2024-11-05 10:07] LABS: Chol/HDL Ratio 3.14 Ratio; LDL Cholesterol,Calculated 59.4 mg/dL (0.0-131.0); T4, Free (Free Thyroxine) 1.36 ng/dL (0.80-1.80); VLDL Calculation 8.76 mg/dL (5.00-40.00)
--- NOTE | 2024-11-05 10:42 | P.PN ---
Subjective Progress Note Date: 11/05/24 HISTORY OF PRESENTING ILLNESS: 54-year-old female with no significant cardiovascular history. She presented to the hospital because of substernal chest pressure and shortness of breath symptoms. She presented to the ER on 31 October with similar complaints when initial workup was negative she was discharged. Because of ongoing symptoms she presented to the hospital again. Admission Cardiac Labs: Hemoglobin 12.3, BUN 19, creatinine 0.9, troponin x 1 was negative, NT-proBNP 100, TSH 0.3, HbA1c 5.9 Admission testing: EKG shows normal sinus rhythm heart rate 67 bpm, Brain CT does not show any acute intracranial process Progress note 11/05/2024 Patient is seen and examined at bedside this a.m. Patient denies having any active palpitation lightheadedness or dizziness. She continues to have dull achiness in her chest. On examination it is somewhat reproducible in the left upper chest with palpation. PHYSICAL EXAMINATION: Neck: Brisk carotid upstroke, no jugular venous distention. Lungs: Clear to auscultation. Heart: Regular rate and rhythm, S1-S2, , no murmur or rub. Abdomen: Soft nontender, positive bowel sounds. Extremities: No edema, intact distal pulses. Neuro: Alert, oritented, no focal deficits. Detailed neuro exam was not performed. ASSESSMENT: # Atypical chest pain, ruled out of ACS. Less likely cardiac as it is reproducible on palpation in left upper chest # Prediabetes # Obesity PLAN: Continue aspirin, Lipitor trial of Imdur 15 mg daily didnot help. Consider lidocaine patch Obtain echocardiogram Obtain treadmill echo stress test Further recommendations to follow Objective - Vital Signs Vital signs: Vital Signs Temp 98.2 F 11/05/24 07:00 Pulse 65 11/05/24 07:00 Resp 15 11/05/24 07:00 BP 129/81 11/05/24 07:00 Pulse Ox 95 11/05/24 07:00 FiO2 Intake & Output 11/04/24 11/05/24 11/05/24 18:59 06:59 18:59 Other: # Voids 6 2 # Bowel Movements 2 - Labs CBC & Chem 7: 11/04/24 04:38 11/04/24 04:38 Labs: Abnormal Lab Results - Last 24 Hours (Table) 11/04/24 Range/Units 13:56 HDL Cholesterol 31.80 L (40.00-60.00) mg/dL TSH 0.359 L (0.465-4.680) mIU/L
--- NOTE | 2024-11-05 15:48 | P.CNNES ---
History of Present Illness Consult date: 11/05/24 Reason for Consult: Lightheadedness, generalized weakness History of Present Illness: The patient is a 54-year-old female who was seen in neurologic consultation on November 05, 2024, in collaboration with Tg Wu, via teleneurology. History is obtained from review of the chart as well as from the patient. The patient reportedly presented to the emergency department with complaints of chest pain and shortness of breath. He she also reports feeling lightheaded and weak. She says she came into the emergency department approximately 1 week ago, with similar symptoms. She was reportedly worked up and discharged home. She saw her primary care physician when her symptoms continued. She was advised to return to the emergency department. She says that she has been having generalized weakness as well as a cough. The chest pain continues. She reports feeling very weak. She denies vomiting. She has felt nauseated. Patient reports a poor appetite. In regards to the weakness, patient reports that her legs feel weak. She says that her arms are okay. She denies pain other than chest pain. She denies falls and injuries. The patient reports that her symptoms began suddenly, a couple weeks ago. The patient denies neck pain. She does report stiffness in her neck. She denies vision changes, difficulty with speech and swallowing. She does report that she had paresthesias in her feet but this has since resolved. She does report receiving a flu vaccine on October 20 and her symptoms began shortly thereafter. She reports that her got that she had the flu. In the emergency department, testing for influenza A, B and COVID-[address] scan of the brain was performed. There was no reported evidence of acute hemorrhage or infarct. This morning, the patient reports experiencing a headache which began following breakfast. She did also receive her morning medications at that time. She st ates that the hospitalist felt as if her headache was related to nitroglycerin (Imdur). Laboratory evaluation reveals a total cholesterol of 100, LDL 59.2, HDL 31.8, TSH 0.359, T41.36, triglycerides 43.8, hemoglobin A1c 5.9, urinalysis is negative for infection. White blood cell count normal at 7.29. Hemoglobin low at 10.5. 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, kidney stones History of Any Multi-Drug Resistant Organisms: None Reported Past Surgical History: Cholecystectomy, Orthopedic Surgery, Tubal Ligation Additional Past Surgical History / Comment(s): lap, left knee scope Past Anesthesia/Blood Transfusion Reactions: No Reported Reaction Past Psychological History: No Psychological Hx Reported Smoking Status: Never smoker Past Alcohol Use History: Occasional Past Drug Use History: None Reported - Past Family History Father Family Medical History: Cancer Additional Family Medical History / Comment(s): prostate Mother Family Medical History: Hypertension Medications and Allergies Home Medications Medication Instructions Recorded Confirmed Type Ascorbic Acid [Vitamin C] 1,000 mg PO DAILY 11/03/24 11/03/24 History Aspirin 81 mg PO DAILY 11/03/24 11/03/24 History Cyanocobalamin (Vitamin B-12) 1,000 mcg PO DAILY 11/03/24 11/03/24 History [Vitamin B-12] Escitalopram [Lexapro] 5 mg PO DAILY 11/03/24 11/03/24 History Multivitamins, Thera [Multivitamin 1 tab PO DAILY 11/03/24 11/03/24 History (formulary)] lysine HCL [l-Lysine] 1,000 mg PO DAILY 11/03/24 11/03/24 History Allergies Allergy/AdvReac Type Severity Reaction Status Date / Time strawberry Allergy Rash/Hives Verified 11/03/24 16:40 Physical Examination - Vital Signs Vital Signs: Vital Signs Temp Pulse Pulse Pulse Pulse Resp BP 11/05/24 07:00 98.2 F 65 15 11/05/24 01:42 97.7 F 77 16 11/04/24 19:52 98.8 F 88 16 11/04/24 14:15 98.3 F 81 17 11/04/24 11:12 80 91 79 17 155/99 BP BP BP BP Pulse Ox 11/05/24 07:00 129/81 95 11/05/24 01:42 127/83 93 L 11/04/24 19:52 114/78 95 11/04/24 14:15 158/95 96 11/04/24 11:12 144/89 135/87 97 Intake and Output 11/04/24 11/05/24 11/05/24 22:59 06:59 14:59 Other: # Voids 1 2 General: Patient is reclining in the bed. She is well-nourished, well-developed and in no acute distress. HEENT: Head is atraumatic, normocephalic. Fundus not visualized. There is no scleral icterus. Mucous membranes are moist. Neck: Supple without carotid bruits. Heart: Regular rate and rhythm Lungs: Clear to auscultation Extremities: Without edema Neurological examination Mental status: Patient is awake, alert and oriented x 3. Her speech is clear. There is no dysarthria or aphasia. Cranial nerves: Pupils are equal at 2 mm and reactive. Visual guan are full to confrontation. Extraocular movements are intact. There is no nystagmus. Facial sensation is intact. There is no facial asymmetry. Hearing is grossly intact. Uvula and palate are midline. Shoulder shrug is symmetric. Tongue pro trudes midline. Motor: Strength is 5/5 throughout. Sensation: Intact to light touch. There is no extinction with double simultaneous stimulation. Coordination: [id number], rapid alternating movements and [id number] testing is intact. There is no pronator drift. Deep tendon reflexes: 2+/4+ in the bilateral upper and lower extremities. Plantar responses flexor bilaterally. Gait: Not assessed Results - Laboratory Findings CBC and BMP: 11/04/24 04:38 11/04/24 04:38 Abnormal Lab Findings: Abnormal Labs 11/03/24 11/03/24 11/04/24 11:53 14:16 04:38 RBC 3.59 L Hgb 10.5 L Hct 33.1 L MCHC 31.7 L RDW 16.3 H MPV 9.1 L Carbon Dioxide BUN 19 H Glucose 110 H Calcium Total Protein 11.9 H TSH Urine Appearance Cloudy H Urine Protein Trace H Urine Ketones 2+ H Ur Leukocyte Esterase Trace H Urine WBC 7 H Ur Squamous Epith Cells 8 H Urine Bacteria Rare H Urine Mucus Moderate H 11/04/24 11/04/24 04:38 13:56 RBC Hgb Hct MCHC RDW MPV Carbon Dioxide 20.6 L BUN Glucose Calcium 8.2 L Total Protein TSH 0.359 L Urine Appearance Urine Protein Urine Ketones Ur Leukocyte Esterase Urine WBC Ur Squamous Epith Cells Urine Bacteria Urine Mucus Assessment and Plan Assessment: 1. The patient is a 54-year-old female with complaints of lightheadedness, shortness of breath, chest pain, weakness. Neurological examination is nonfocal, nonlateralizing. There is no evidence to suggest cerebral ischemia or spinal cord involvement. Likely the patient's symptoms are secondary to dehydration, possible viral infection or cardiac etiology Plan: 1. Agree with further cardiac testing 2. Agree with 2D echocardiogram Thank you for allowing us to participate in the care of this patient Dr. Barriga will assume neurologic coverage of this patient as of November 06, 2024 Time with Patient: Greater than 30 (61 minutes were spent caring for this patient today including, obtaining history, examining the patient, reviewing i maging, chart documentation, labs and creating this note)
--- NOTE | 2024-11-05 17:18 | P.PN ---
Subjective Progress Note Date: 11/05/24 54-year-old female with past medical history of valvular disease who presents to the emergency department reporting chest pain, back pain, shortness of breath for the past 5 days. Patient previously seen in the emergency department on the with same complaint. Workup was performed. Patient found to be acetone positive with high protein. Patient was discharged home. Continues to have symptoms. Saw her primary care doctor today who recommended that she come back to the hospital for continued chest pain. Patient denies fevers, chills or cough. Admits nausea without vomiting. Decreased oral intake. No other alleviating, precipitating or modifying factors Workup completed in ED reveals a WBC of 7.6, hemoglobin of 12.3 and platelet count of 436, sodium 130, potassium 3.8, BUNs/creatinine of 19/0.89, troponin of less than 0.012 UA reveals 2+ ketones with rare bacteria and 7 WBCs and elevated squamous cells -Given elevated ketones/acetone, patient is being admitted for dehydration and further workup of chest pain -Patient has been evaluated by cardiology and is recommended echocardiogram and treadmill echo stress test -- Patient has been evaluated by neurology for complaints of excessive weakness and inability to get out of bed; likely related to dehydration with possible viral infection; no further neurotesting is recommended Objective - Vital Signs Vital signs: Vital Signs Temp 98.2 F 11/05/24 07:00 Pulse 65 11/05/24 07:00 Resp 15 11/05/24 07:00 BP 129/81 11/05/24 07:00 Pulse Ox 95 11/05/24 07:00 FiO2 Intake & Output 11/04/24 11/05/24 11/05/24 18:59 06:59 18:59 Other: # Voids 6 2 # Bowel Movements 2 - Exam Neck: Brisk carotid upstroke, no jugular venous distention. Lungs: Clear to auscultation. Heart: Regular rate and rhythm, S1-S2, , no murmur or rub. Abdomen: Soft nontender, positive bowel sounds. Extremities: No edema, intact distal pulses. Neuro: Alert, oritented, no focal deficits. Detailed neuro exam was not performed. - Labs CBC & Chem 7: 11/04/24 04:38 11/04/24 04:38 Labs: Abnormal Lab Results - Last 24 Hours (Table) 01/18/25 Range/Units 13:56 HDL Cholesterol 31.80 L (40.00-60.00) mg/dL TSH 0.359 L (0.465-4.680) mIU/L Assessment and Plan Assessment: 1. Chest pain rule out acute coronary syndrome -Patient is admitted to telemetry; monitor EKG and trend troponin -Will recommend 2D echo -Consult cardiology 2. Weakness/inability to walk -- Patient reports it started about a week ago and has gotten progressively worse -Will order CT of the head; consult neurology 3. Dehydration; patient has been placed on IV fluids in form of half-normal saline at rate of 75 cc an hour; will monitor strict GORGE's and electrolytes 4. Vitamin B12 deficiency; continue with home dose of vitamin B-12 1000 mcg daily 5. Depression; Lexapro 5 mg daily DVT prophylaxis; SCDs CODE STATUS; full code
[2024-11-05] MEDS: LIDOCAINE 4% PATCH TOPICAL ONE (17:54)
[2024-11-05] MEDS: ACETAMINOPHEN TAB 325 MG TAB PO PRN (20:32)
--- NOTE | 2024-11-06 12:05 | P.PN ---
Subjective Progress Note Date: 11/06/24 HISTORY OF PRESENTING ILLNESS: 54-year-old female with no significant cardiovascular history. She presented to the hospital because of substernal chest pressure and shortness of breath symptoms. She presented to the ER on 31 October with similar complaints when initial workup was negative she was discharged. Because of ongoing symptoms she presented to the hospital again. Admission Cardiac Labs: Hemoglobin 12.3, BUN 19, creatinine 0.9, troponin x 1 was negative, NT-proBNP 100, TSH 0.3, HbA1c 5.9 Admission testing: EKG shows normal sinus rhythm heart rate 67 bpm, Brain CT does not show any acute intracranial process 11/05/2024 Patient is seen and examined at bedside this a.m. Patient denies having any active palpitation lightheadedness or dizziness. She continues to have dull achiness in her chest. On examination it is somewhat reproducible in the left upper chest with palpation. 11/06 Patient seen and examined. Patient was scheduled for exercise stress test this morning but she is complaining of lightheadedness when she gets up and walks to the bathroom. Patient states that she initially came to the hospital on 10/31 for chest pain, lightheadedness dizziness weakness fever and occasional cough. She was discharged and then came back on Wednesday as she was sent by her PCP. This was for chest pain and lightheadedness. She states she has lightheadedness right now while she is laying in bed but when she gets up and moves it becomes worse. It is especially worse when she moves her head. She also complains of headache and has been started on Imdur. She does not think the Imdur is helped her chest pain. Tylenol has helped with the headache. She does have chest wall tenderness as well. Blood pressure 145/82, heart rate 65, pulse ox 94% on room air. PHYSICAL EXAMINATION: Neck: Brisk carotid upstroke, no jugular venous distention. Lungs: Clear to auscultation. Heart: Regular rate and rhythm, S1-S2, , no murmur or rub. Abdomen: Soft nontender, positive bowel sounds. Extremities: No edema, intact distal pulses. Neuro: Alert, oritented, no focal deficits. Detailed neuro exam was not performed. ASSESSMENT: Atypical chest pain, ruled out of ACS. Less likely cardiac as it is reproducible on palpation in left upper chest Prediabetes Obesity PLAN: Continue aspirin, Lipitor Discontinue Imdur as it does not seem to help her pain and is caused headache Obtain echocardiogram Obtain D-dimer Change stress test to Cardiolite stress test today and if patient is not able to ambulate on the treadmill, it will be transition to Lexiscan stress test. Further recommendations to follow Nurse practitioner note has been reviewed, I agree with documented findings and plan of care. Patient was seen and examined. Objective - Vital Signs Vital signs: Vital Signs Temp 98.0 F 11/06/24 07:00 Pulse 65 11/06/24 07:00 Resp 15 11/06/24 07:00 BP 145/82 11/06/24 07:00 Pulse Ox 94 L 11/06/24 07:00 FiO2 Intake & Output 11/05/24 11/06/24 11/06/24 18:59 06:59 18:59 Other: # Voids 2 2 - Labs CBC & Chem 7: 11/04/24 04:38 11/04/24 04:38
--- NOTE | 2024-11-06 14:08 | NM ---
EXAMINATION TYPE: NM stress lexiscan cardiolite DATE OF EXAM: 11/06/2024 COMPARISON: NONE CLINICAL INDICATION: Female, 54 years old with history of chest pain, if DDimer normal; history of hy pertension and family history of coronary artery disease TECHNIQUE: After the intravenous administration of 10.05 mCi Tc 99m Sestamibi - Cardiolite resting S PECT images acquired 50 minutes post injection. The patient received 0.4mg Lexiscan, 24.7 mCi Tc 99m Sestamibi - Stress images obtained [address] injection FINDINGS: Review of stress and rest SPECT images demonstrates no distinct perfusion abnormality. Gated analysi s shows normal wall motion with an estimated left ventricular ejection fraction of 65 %. IMPRESSION: No scintigraphic evidence for reversible ischemia. [facility], , 11/06/2024 2:06 PM
--- NOTE | 2024-11-06 15:41 | P.PN ---
Subjective Progress Note Date: 11/06/24 54-year-old female with past medical history of valvular disease who presents to the emergency department reporting chest pain, back pain, shortness of breath for the past 5 days. Patient previously seen in the emergency department on the with same complaint. Workup was performed. Patient found to be acetone positive with high protein. Patient was discharged home. Continues to have symptoms. Saw her primary care doctor today who recommended that she come back to the hospital for continued chest pain. Patient denies fevers, chills or cough. Admits nausea without vomiting. Decreased oral intake. No other alleviating, precipitating or modifying factors Workup completed in ED reveals a WBC of 7.6, hemoglobin of 12.3 and platelet count of 436, sodium 130, potassium 3.8, BUNs/creatinine of 19/0.89, troponin of less than 0.012 UA reveals 2+ ketones with rare bacteria and 7 WBCs and elevated squamous cells -Given elevated ketones/acetone, patient is being admitted for dehydration and f urther workup of chest pain -Patient has been evaluated by cardiology and is recommended echocardiogram and treadmill echo stress test -- Patient has been evaluated by neurology for complaints of excessive weakness and inability to get out of bed; likely related to dehydration with possible viral infection; no further neurotesting is recommended Progress note for 11/06/2024: Patient was seen at bedside today. Still reports a 2 out of 10 chest pain although overall has been feeling better compared to yesterday. No other acute complaints at this time. Patient is scheduled to undergo a stress test and echocardiogram today. Review of Systems Constitutional: Denies chills, Denies fever Eyes: denies blurred vision, double vision or pain Ears, nose, mouth and throat: Denies headache, Denies sore throat Cardiovascular: Reports chest pain, Denies shortness of breath Respiratory: Denies cough Gastrointestinal: Denies abdominal pain, Denies diarrhea, Denies nausea, Denies vomiting Musculoskeletal: Denies myalgias Integumentary: Denies pruritus, Denies rash Neurological: Denies numbness, Denies weakness Psychiatric: Denies anxiety, Denies depression Endocrine: Denies fatigue, Denies weight change GENERAL: This is a 54-year-old in no apparent distress at the time of examination. Pleasant and cooperative. HEENT: Head is atraumatic, normocephalic. Pupils are equal, round, and reactive to light. Sclerae anicteric. Conjunctivae are clear. Mucus membranes of the mouth are moist. Neck is supple. RESPIRATORY: Clear to auscultation. No wheezes, rales, or rhonchi. No use of ac cessory muscles. No chest wall tenderness is noted on palpation or with deep breathing. CARDIOVASCULAR: Regular rate and rhythm. S1 and S2 noted. No systolic or diastolic murmur auscultated. No JVD noted. No S3 or S4 noted. GASTROINTESTINAL: No distention noted. Abdomen soft and round. Normal active bowel sounds auscultated x 4 quadrants. No pain or tenderness noted upon palpation. INTEGUMENTARY: No cyanosis. No jaundice. No rashes noted. No cellulitis noted. EXTREMITIES: 2+ peripheral pulses. No evidence of peripheral edema. No calf tenderness noted. NEUROLOGIC: Cranial nerves II-XII intact. PSYCHIATRIC: Awake, alert, and oriented X 3. Appropriate affect. Intact judgement and insight. Assessment and plan: 1. Chest pain rule out acute coronary syndrome -Patient is admitted to telemetry; monitor EKG and trend troponin -Will recommend 2D echo -Consult cardiology Order chest x-ray 2. Elevated D-dimer Obtain CT angiography of chest with contrast D-dimer 0.98 3. Inverted albumin to globulin ratio Total protein 11.9, albumin 4.1, globulin estimated 7.8 Suspecting monoclonal gammopathy versus malignant tumors Obtain immunoglobulin electrophoresis Obtain IgG, IgE, IgA levels 4. Weakness/inability to walk -- Patient reports it started about a week ago and has gotten progressively worse -Will order CT of the head; consult neurology 5. Dehydration; patient has been placed on IV fluids in form of half-normal saline at rate of 75 cc an hour; will monitor strict GORGE's and electrolytes 6. Vitamin B12 deficiency; continue with home dose of vitamin B-12 1000 mcg daily 7. Depression; Lexapro 5 mg daily DVT prophylaxis; SCDs CODE STATUS; full code Objective - Vital Signs Vital signs: Vital Signs Temp 97.9 F 11/06/24 14:51 Pulse 76 11/06/24 14:51 Resp 16 11/06/24 14:51 BP 118/79 11/06/24 14:51 Pulse Ox 93 L 11/06/24 14:51 FiO2 Intake & Output 11/05/24 11/06/24 11/06/24 18:59 06:59 18:59 Intake Total 222 Balance 222 Intake: Oral 222 Other: # Voids 2 2 2 - Labs CBC & Chem 7: 11/04/24 04:38 11/04/24 04:38 Labs: Abnormal Lab Results - Last 24 Hours (Table) 11/06/24 Range/Units 10:50 D-Dimer 0.98 H (<0.60) mg/L FEU
--- NOTE | 2024-11-06 17:12 | CA ---
Lexiscan Nuclear Stress Test Report Name: Shaina Medeiros Exam Date: 11/06/2024 12:21 Exam Location: [facility] Stress Ht (in): 61 Wt (lb): 193 BSA: 1.86 Ordering Phys: Alana Turk Referring Phys: HÉCTOR Technologist: Andi Jackson Age: 54 Gender: F : 1970 Procedure CPT: Indications: Reflex order-Stress test ICD-10 Codes: Patient History: CHEST PAIN, DIFFICULTY IN BREATHING, PALPITATIONS, HYPERTENSION, FAMILY HX OF HEART DISEASE, PRIOR SMOKER Medications: Meds past 24 hrs: Pretest Chest Pain: STRESS TEST Lexiscan Protocol Exercise Duration (min:sec): 01:[address] Depressions (mm): Angina Score: Brian Score: Resting HR (bpm): 69 Peak HR (bpm): 103 Resting BP (mmHg): 135 / 86 Peak BP (mmHg): 135 / 86 MPHR: 166 Target HR: 141 % MPHR: 62 METS: 1.0 Total Dose: Peak Dose: Atropine: Double Product: 09888 BP Response: Stress Termination: INFUSION COMPLETE Stress Symptoms: NO SYMPTOMS Stress Summary: ECG ANALYSIS Resting ECG: Stress ECG: CONCLUSIONS At baseline EKG showed normal sinus rhythm, normal axis, no significant ST or T wave abnormalities. Patient recieved IV infusion of Lexiscan 0.4mg and at peak infusion EKG showed no significant change from baseline. Conclusions: 1. Normal EKG response to Lexiscan infusion 2. Nuclear imaging to be reported separately. Dr. David Serrato DO (Electronically Signed) Final Date: 06 November 2024 17:11
--- NOTE | 2024-11-06 17:13 | CT ---
EXAMINATION TYPE: CT angio chest DATE OF EXAM: 11/06/2024 5:04 PM COMPARISON: 04/06/2022 hest CLINICAL INDICATION: Female, 54 years old with history of elevated d dimer; ALISIA, positive dimer TECHNIQUE/CONTRAST: CTA scan of the thorax is performed with IV Contrast, patient injected with 60 mL of Isovue 370, MIP images are created and reviewed these are created on a separate workstation.. CT DLP: 440.3 mGycm, Automated exposure control for dose reduction was used. FINDINGS: Lungs/Pleura: No evidence of focal consolidation, pleural effusion or pneumothorax. Airway: Large airways are patent. Heart: Size within normal limits Vasculature: There is no evidence for a filling defect within the pulmonary vasculature to suggest [facility] [place] pulmonary embolism. The pulmonary artery is of normal size. Mediastinum: No gross evidence of adenopathy. Few scattered partially calcified lymph nodes. Musculoskeletal: No acute osseous abnormalities, incomplete the diffuse left anterior rib 2 fracture as well as other fractures at rib 3 4 also present. Soft Tissues/lymph nodes: Unremarkable. Lower neck: No significant findings. Upper Abdomen: Scattered calcified granulomas. The gallbladder surgically absent. IMPRESSION: 1. No evidence of pulmonary embolism. 2. Incompletely fused left anterior rib fractures. 3. Chronic illness changes partially calcified lymph nodes and granulomas in the spleen. [facility], , 11/06/2024 5:10 PM
--- NOTE | 2024-11-06 17:22 | CA ---
Transthoracic Echo Report Name: Shaina Medeiros Age: 54 Gender: F : 1970 Exam Date: 11/06/2024 15:49 Exam Location: [facility] Ht (in): 61 Wt (lb): 193 Ordering Physician: Duy Gross MD ([id number]) Attending/Referring Phys: Physicist [place] Martha Gates RDCS Procedure CPT: Indications: chest pressure Cardiac Hx: Technical Quality: Fair Contrast 1: Total Dose (mL): Contrast 2: Total Dose (mL): MEASUREMENTS (Male / Female) Normal Values 2D ECHO LV Diastolic Diameter PLAX 4.4 cm 4.2 - 5.9 / 3.9 - 5.3 cm LV Systolic Diameter PLAX 2.9 cm IVS Diastolic Thickness 1.3 cm 0.6 - 1.0 / 0.6 - 0.9 cm LVPW Diastolic Thickness 1.1 cm 0.6 - 1.0 / 0.6 - 0.9 cm LV Relative Wall Thickness 0.6 RV Internal Dim ED PLAX 3.5 cm LA Systolic Diameter LX 3.4 cm 3.0 - 4.0 / 2.7 - 3.8 cm LV Diastolic Volume MOD 4C 77.0 cm??? LV Systolic Volume MOD 4C 41.1 cm??? LV Ejection Fraction MOD 4C 46.5 % LV Cardiac Index MOD 4C 1263.6 cm???/min???m??? LV Diastolic Length 4C 7.7 cm LV Systolic Length 4C 5.9 cm LV Diastolic Volume MOD 2C 82.6 cm??? LV Systolic Volume MOD 2C 37.3 cm??? LV Ejection Fraction MOD 2C 54.8 % LV Cardiac Index MOD 2C 1594.9 cm???/min???m??? LV Diastolic Length 2C 8.1 cm LV Systolic Length 2C 6.5 cm LA Volume 64.7 cm??? 18 - 58 / 22 - 52 cm??? LA Volume Index 32.6 cm???/m??? 16 - 28 cm???/m??? M-MODE Aortic Root Diameter MM 3.1 cm AV Cusp Separation MM 2.5 cm DOPPLER AV Peak Velocity 136.2 cm/s AV Peak Gradient 7.4 mmHg MV Area PHT 3.9 cm??? Mitral E Point Velocity 90.3 cm/s Mitral A Point Velocity 82.0 cm/s Mitral E to A Ratio 1.1 MV Deceleration Time 194.0 ms FINDINGS Left Ventricle Left ventricular ejection fraction is estimated at 55 %. Left ventricular cavity size normal. Moderately increased septal wall thickness. Mildly increased posterior wall thickness. No obvious regional wall motion abnormalities. Right Ventricle Mild right ventricular dilatation. Unable to estimate the right ventricular systolic pressure. Right Atrium Normal right atrial size. No right atrial thrombus or mass seen. Left Atrium Mildly increased left atrial volume. Mildly increased left atrial area. No left atrial thrombus or mass present. Mitral Valve Mitral valve thickened. No evidence for mitral valve prolapse. No mitral stenosis. Trace mitral regurgitation. Aortic Valve Trileaflet aortic valve. No aortic valve stenosis or regurgitation. Tricuspid Valve Structurally normal tricuspid valve. No tricuspid stenosis, regurgitation or prolapse. Pulmonic Valve Structurally normal pulmonic valve. Trace pulmonic regurgitation. Pericardium No pericardial or pleural effusion. Aorta Normal size aortic root and proximal ascending aorta. CONCLUSIONS Left ventricular ejection fraction 55% Mild to moderately increased left ventricular wall thickness Mildly dilated left atrium Trace mitral regurgitation Trace pulmonic regurgitation Previewed by: Dr. David Serrato DO (Electronically Signed) Final Date: 06 November 2024 17:21
--- NOTE | 2024-11-06 17:26 | XR ---
EXAMINATION TYPE: XR chest 2V DATE OF EXAM: 11/06/2024 5:13 PM COMPARISON: Chest radiographs from 10/31/2024 CLINICAL INDICATION: Female, 54 years old with history of chest pain; [facility] TECHNIQUE: XR chest 2V Frontal and lateral views of the chest. FINDINGS: Lungs/Pleura: There is no evidence of pleural effusion, focal consolidation, or pneumothorax. Pulmonary vascularity: Unremarkable. Heart/mediastinum: Cardiomediastinal silhouette is unremarkable. Musculoskeletal: No acute osseous pathology. IMPRESSION: No acute cardiopulmonary disease/process. [facility], , 11/06/2024 5:24 PM
[2024-11-06 20:29] LABS: Immunoglobulin E 7.78 IU/mL (0.00-114.00)
[2024-11-07 08:57] LABS: BUN/Creat Ratio 15.43 Ratio (12.00-20.00); Blood Urea Nitrogen 10.8 mg/dL (9.0-27.0); Calcium 8.8 mg/dL (8.7-10.3); Carbon Dioxide 23.1 mmol/L (21.6-31.8); Chloride 104 mmol/L (96-109); Glucose 101 mg/dL (70-110); Potassium 3.9 mmol/L (3.5-5.5); Sodium 137 mmol/L (135-145)
[2024-11-07 09:03] LABS: Basophils # (A) 0.04 X 10*3/uL (0.00-0.10); Basophils % (A) 0.6 %; Eosinophils # (A) 0.19 X 10*3/uL (0.04-0.35); Eosinophils % (A) 2.6 %; HCT 32.6 % (37.2-46.3); HGB 10.5 g/dL (12.0-15.0); Lymphocytes # (A) 2.67 X 10*3/uL (0.90-5.00); Lymphocytes % (A) 36.7 %; MCH 28.9 pg (27.0-32.0); MCHC 32.2 g/dL (32.0-37.0); MCV 89.8 FL (80.0-97.0); Mean Platelet Volume 9.5 FL (9.5-12.2); Monocytes # (A) 0.45 X 10*3/uL (0.20-1.00); Monocytes % (A) 6.2 %; NRBC Per 100 WBC 0 X 10*3/uL (0.00-0.01); Neutrophils % (A) 53.6 %; Platelet Count 374 X 10*3/uL (140-440); RBC 3.63 X 10*6/uL (4.10-5.20); RDW 16.3 % (11.5-14.5); WBC 7.27 X 10*3/uL (4.50-10.00)
[2024-11-07 10:50] LABS: Protein, Total 10.7 g/dL (6.2-8.2)
--- NOTE | 2024-11-07 13:38 | CT ---
EXAMINATION TYPE: CT brain wo con DATE OF EXAM: 11/07/2024 1:26 PM COMPARISON: None. CLINICAL INDICATION: Female, 54 years old with history of headache, dizzy, Headache, dizzy TECHNIQUE: CT of the brain is performed utilizing 3 mm thick sections through the posterior fossa and 3 mm thick sections through the remaining calvarium. Study is performed within 24 hours of arrival to the hospital. Contrast used: mL of , (none if empty) CT DLP: 1213 mGycm, Automated exposure control for dose reduction was used. FINDINGS: No abnormal hyperdensity is present to suggest an acute intracranial hemorrhage. No mass lesion is evident. No acute infarcts are evident. Ventricles and sulci are appropriate for the patient age. There is a patent cavum septum lucidum Cap e Addi, normal variants. Minimal mucosal thickening is within the inferior left maxillary sinus. There is opacification of the left frontal sinus. Some mild mucosal thickening is within the inferior right frontal sinus. Mastoid air cells are clear. IMPRESSION: 1. No acute intracranial process. Follow up MRI can be performed as clinically indicated. 2. Clinical consideration for mild sinusitis within the frontal sinuses. [facility], , 11/07/2024 1:36 PM
[2024-11-07] MEDS: MECLIZINE 25 MG TAB PO STA (13:41)
[2024-11-07] MEDS: SODIUM CHLORIDE 0.9% 1,000 ML IV SCH (13:42)
[2024-11-07] MEDS: SODIUM CHLORIDE 0.9% 500 ML 500 ML IV ONE (13:42)
--- NOTE | 2024-11-07 14:23 | P.PN ---
Subjective Progress Note Date: 11/07/24 HISTORY OF PRESENTING ILLNESS: 54-year-old female with no significant cardiovascular history. She presented to the hospital because of substernal chest pressure and shortness of breath symptoms. She presented to the ER on 31 October with similar complaints when initial workup was negative she was discharged. Because of ongoing symptoms she presented to the hospital again. Admission Cardiac Labs: Hemoglobin 12.3, BUN 19, creatinine 0.9, troponin x 1 was negative, NT-proBNP 100, TSH 0.3, HbA1c 5.9 Admission testing: EKG shows normal sinus rhythm heart rate 67 bpm, Brain CT does not show any acute intracranial process 11/05/2024 Patient is seen and examined at bedside this a.m. Patient denies having any active palpitation lightheadedness or dizziness. She continues to have dull achiness in her chest. On examination it is somewhat reproducible in the left upper chest with palpation. 11/06 Patient seen and examined. Patient was scheduled for exercise stress test this morning but she is complaining of lightheadedness when she gets up and walks to the bathroom. Patient states that she initially came to the hospital on 10/31 for chest pain, lightheadedness dizziness weakness fever and occasional cough. She was discharged and then came back on Wednesday as she was sent by her PCP. This was for chest pain and lightheadedness. She states she has lightheadedness right now while she is laying in bed but when she gets up and moves it becomes worse. It is especially worse when she moves her head. She also complains of headache and has been started on Imdur. She does not think the Imdur is helped her chest pain. Tylenol has helped with the headache. She does have chest wall tenderness as well. Blood pressure 145/82, heart rate 65, pulse ox 94% on room air. 11/07 Patient seen and examined. Patient states that she is not feeling any better. She denies having nausea. She does complain of some shortness of breath with walking but most of her problem is with dizziness and lightheadedness. She states she is eating and drinking okay. Discussed results of the testing that h ave been done with the patient. Also discussed possibility of her symptoms related to POTS. Orthostatic vital signs were checked and are negative. Echocardiogram reveals EF of 55%, mild to moderate increased left ventricular wall thickness, mildly dilated left atrium, trace MR, trace ND. Lexiscan Cardiolite stress test performed yesterday revealed no reversible ischemia. CTA of the chest is negative for pulmonary embolism. PHYSICAL EXAMINATION: Neck: Brisk carotid upstroke, no jugular venous distention. Lungs: Clear to auscultation. Heart: Regular rate and rhythm, S1-S2, , no murmur or rub. Abdomen: Soft nontender, positive bowel sounds. Extremities: No edema, intact distal pulses. Neuro: Alert, oritented, no focal deficits. Detailed neuro exam was not performed. ASSESSMENT: Atypical chest pain, ruled out ACS. Possible POTS Prediabetes Obesity PLAN: Continue aspirin, Lipitor Obtain CRP, sed rate Further recommendations to follow Nurse practitioner note has been reviewed, I agree with documented findings and plan of care. Patient was seen and examined. Objective - Vital Signs Vital signs: Vital Signs Temp 98.0 F 11/07/24 07:00 Pulse 67 11/07/24 07:00 Resp 17 11/07/24 07:00 BP 136/86 11/07/24 07:00 Pulse Ox 94 L 11/07/24 07:00 FiO2 Intake & Output 11/06/24 11/07/24 11/07/24 18:59 06:59 18:59 Intake Total 222 236 Balance 222 236 Intake: Oral 222 236 Other: Voiding Method Toilet # Voids 2 0 - Labs CBC & Chem 7: 11/07/24 05:48 11/07/24 05:48 Labs: Abnormal Lab Results - Last 24 Hours (Table) 11/06/24 11/07/24 Range/Units 10:50 05:48 RBC 3.63 L (4.10-5.20) X 10*6/uL Hgb 10.5 L (12.0-15.0) g/dL Hct 32.6 L (37.2-46.3) % RDW 16.3 H (11.5-14.5) % Total Protein (PEP) 10.7 H (6.2-8.2) g/dL IgG 6072.0 H (700.0-1600.0) mg/dL
[2024-11-07 15:24] LABS: Hepatitis A Antibody IgM Nonreactive (Nonreactive); Hepatitis B Core IgM Nonreactive (Nonreactive); Hepatitis B Surface Antigen Nonreactive (Nonreactive); Hepatitis C IgG Antibody Nonreactive (Nonreactive)
[2024-11-07] MEDS: MECLIZINE 12.5 MG TAB PO SCH (17:29)
--- NOTE | 2024-11-08 06:47 | P.PN ---
Subjective Progress Note Date: 11/07/24 54-year-old female with past medical history of valvular disease who presents to the emergency department reporting chest pain, back pain, shortness of breath for the past 5 days. Patient previously seen in the emergency department on the with same complaint. Workup was performed. Patient found to be acetone positive with high protein. Patient was discharged home. Continues to have symptoms. Saw her primary care doctor today who recommended that she come back to the hospital for continued chest pain. Patient denies fevers, chills or cough. Admits nausea without vomiting. Decreased oral intake. No other alleviating, precipitating or modifying factors Workup completed in ED reveals a WBC of 7.6, hemoglobin of 12.3 and platelet count of 436, sodium 130, potassium 3.8, BUNs/creatinine of 19/0.89, troponin of less than 0.012 UA reveals 2+ ketones with rare bacteria and 7 WBCs and elevated squamous cells -Given elevated ketones/acetone, patient is being admitted for dehydration and further workup of chest pain -Patient has been evaluated by cardiology and is recommended echocardiogram and treadmill echo stress test -- Patient has been evaluated by neurology for complaints of excessive weakness and inability to get out of bed; likely related to dehydration with possible viral infection; no further neurotesting is recommended Progress note for 11/06/2024: Patient was seen at bedside today. Still reports a 2 out of 10 chest pain although overall has been feeling better compared to yesterday. No other acute complaints at this time. Patient is scheduled to undergo a stress test and echocardiogram today. 11/07/2024 Patient being followed by cardiology and evaluated at bedside recommending orthostatic vitals which were not positive as patient is reporting significant dizziness and lightheadedness with continued ongoing symptoms. Neurology initially evaluated the patient although we will reconsult and also obtain CT brain. Recommend meclizine 12.5 mg scheduled with a stat dose of 25 mg given now. Cardiology is status post stress test which was negative and is stable from there per staff. Recommend monitoring overnight and also gentle hydration. Follow-up with repeat labs in the AM. Review of systems: Constitutional: No reports of fatigue, fever, or chills Cardiovascular: No reports of chest pain or palpitations Respiratory: No reports of shortness of breath or cough GI: reports of nausea, no vomiting, or diarrhea : No reports of dysuria or retention Neurovascular: reports of weakness and continued ongoing lightheadedness and dizziness when getting up All medications have been reviewed Physical exam: GENERAL: This is a 54-year-old in no apparent distress at the time of examination. Pleasant and cooperative. Well-developed, elderly appearing, obese HEENT: Head is atraumatic, normocephalic. Pupils are equal, round, and reactive to light. Sclerae anicteric. Conjunctivae are clear. Mucus membranes of the mouth are moist. Neck is supple. RESPIRATORY: Clear to auscultation. No wheezes, rales, or rhonchi. No use of accessory muscles. No chest wall tenderness is noted on palpation or with deep breathing. CARDIOVASCULAR: Regular rate and rhythm. S1 and S2 noted. No systolic or diastolic murmur auscultated. No JVD noted. No S3 or S4 noted. GASTROINTESTINAL: No distention noted. Abdomen soft and round. Normal active bowel sounds auscultated x 4 quadrants. No pain or tenderness noted upon palpation. INTEGUMENTARY: No cyanosis. No jaundice. No rashes noted. No cellulitis noted. EXTREMITIES: 2+ peripheral pulses. No evidence of peripheral edema. No calf tenderness noted. NEUROLOGIC: Cranial nerves II-XII intact. PSYCHIATRIC: Awake, alert, and oriented X 3. Appropriate affect. Intact judgement and insight. Assessment and plan: 1. Chest pain ruled out acute coronary syndrome, status post stress test which was negative -Cardiology following and has cleared the patient for discharge. Repeat orthostatic vitals are not positive 2. Elevated D-dimer CT angiography of chest with contrast is negative for PE D-dimer 0.98 3. 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 Weakness/inability to walk -- Patient reports it started about a week ago and has gotten progressively worse -Initial CT of the brain was negative and neurology evaluated the patient and signed off. Patient having continued ongoing symptoms and will order repeat stat CT, start the patient on meclizine and also reconsult neuro and appreciate input and recommendations. 5. Dehydration; continue normal saline at 75 mL an hour, repeat labs for a.m. 6. Vitamin B12 deficiency; continue with home dose of vitamin B-12 1000 mcg daily 7. Depression; Lexapro 5 mg daily 8. Obesity with a BMI 36.5 GI prophylaxis DVT prophylaxis; SCDs CODE STATUS; full code Plan: Patient is being followed by cardiology status post stress testing which was neg ative and has been cleared by cardiology with outpatient follow-up Patient continuing to report dizziness and lightheadedness and difficulty with ambulating, will add stat CT brain and reconsult neurology for input and recommendations Continue meclizine 12.5 mg scheduled 3 times daily Repeat labs in a.m. PT/OT therapy evaluation Will await neurology evaluation and improvement in symptoms with possible discharge planning in the next 24 to 48 hours Due to multiple complex medical issues, overall prognosis is guarded The impression and plan of care has been dictated by Malika Maravilla, Nurse Practitioner as directed. Dr. Je MD I have performed a history and examination and MDM of this patient, discussed the same with the dictator, and agree with the dictator's assessment and plan as written ,documented as a scribe. Based on total visit time, I have performed more than 50% of the visit. Objective - Vital Signs Vital signs: Vital Signs Temp 98.3 F 11/08/24 02:54 Pulse 67 11/08/24 02:54 Resp 18 11/08/24 02:54 BP 135/88 11/08/24 02:54 Pulse Ox 97 11/08/24 02:54 FiO2 Intake & Output 11/07/24 11/07/24 11/08/24 06:59 18:59 06:59 Intake Total 472 Balance 472 Intake: Oral 472 Other: Voiding Method Toilet Toilet # Voids 0 1 2 - Labs CBC & Chem 7: 11/07/24 05:48 11/07/24 05:48 Labs: Abnormal Lab Results - Last 24 Hours (Table) 11/06/24 11/07/24 11/07/24 Range/Units 10:50 05:48 12:04 RBC 3.63 L (4.10-5.20) X 10*6/uL Hgb 10.5 L (12.0-15.0) g/dL Hct 32.6 L (37.2-46.3) % RDW 16.3 H (11.5-14.5) % ESR 91 H (0-30) mm/Hr C-Reactive Protein (0.00-0.80) mg/dL Total Protein (PEP) 10.7 H (6.2-8.2) g/dL 11/07/24 Range/Units 12:04 RBC (4.10-5.20) X 10*6/uL Hgb (12.0-15.0) g/dL Hct (37.2-46.3) % RDW (11.5-14.5) % ESR (0-30) mm/Hr C-Reactive Protein 2.90 H (0.00-0.80) mg/dL Total Protein (PEP) (6.2-8.2) g/dL
[2024-11-08 07:37] VITALS: RESP 16
--- NOTE | 2024-11-08 10:11 | P.PN ---
Subjective Progress Note Date: 11/08/24 HISTORY OF PRESENTING ILLNESS: 54-year-old female with no significant cardiovascular history. She presented to the hospital because of substernal chest pressure and shortness of breath symptoms. She presented to the ER on 31 October with similar complaints when initial workup was negative she was discharged. Because of ongoing symptoms she presented to the hospital again. Admission Cardiac Labs: Hemoglobin 12.3, BUN 19, creatinine 0.9, troponin x 1 was negative, NT-proBNP 100, TSH 0.3, HbA1c 5.9 Admission testing: EKG shows normal sinus rhythm heart rate 67 bpm, Brain CT does not show any acute intracranial process 11/05/2024 Patient is seen and examined at bedside this a.m. Patient denies having any active palpitation lightheadedness or dizziness. She continues to have dull achiness in her chest. On examination it is somewhat reproducible in the left upper chest with palpation. 11/06 Patient seen and examined. Patient was scheduled for exercise stress test this morning but she is complaining of lightheadedness when she gets up and walks to the bathroom. Patient states that she initially came to the hospital on 10/31 for chest pain, lightheadedness dizziness weakness fever and occasional cough. She was discharged and then came back on Wednesday as she was sent by her PCP. This was for chest pain and lightheadedness. She states she has lightheadedness right now while she is laying in bed but when she gets up and moves it becomes worse. It is especially worse when she moves her head. She also complains of headache and has been started on Imdur. She does not think the Imdur is helped her chest pain. Tylenol has helped with the headache. She does have chest wall tenderness as well. Blood pressure 145/82, heart rate 65, pulse ox 94% on room air. 11/07 Patient seen and examined. Patient states that she is not feeling any better. She denies having nausea. She does complain of some shortness of breath with walking but most of her problem is with dizziness and lightheadedness. She states she is eating and drinking okay. Discussed results of the testing that h ave been done with the patient. Also discussed possibility of her symptoms related to POTS. Orthostatic vital signs were checked and are negative. Echocardiogram reveals EF of 55%, mild to moderate increased left ventricular wall thickness, mildly dilated left atrium, trace MR, trace LA. Lexiscan Cardiolite stress test performed yesterday revealed no reversible ischemia. CTA of the chest is negative for pulmonary embolism. 11/08 Patient seen and examined. Yesterday we had ordered IV fluid bolus of 500 cc and attending continued IV fluids at 75 cc/h. Patient states that her lightheadedness is better today. She denies any chest pain. Both CRP and sed rate are elevated. CRP 2.9 and sed rate 9.1. Discussed with patient that it does not seem to be a cardiac issue that is causing her symptoms. Her inflammatory markers are elevated and would need to rule out autoimmune disorder or possible viral syndrome. Would recommend continuing fluids and follow-up outpatient. PHYSICAL EXAMINATION: Neck: Brisk carotid upstroke, no jugular venous distention. Lungs: Clear to auscultation. Heart: Regular rate and rhythm, S1-S2, , no murmur or rub. Abdomen: Soft nontender, positive bowel sounds. Extremities: No edema, intact distal pulses. Neuro: Alert, oritented, no focal deficits. Detailed neuro exam was not performed. ASSESSMENT: Atypical chest pain, ruled out ACS. Reports lightheadedness/dizziness Possible POTS Prediabetes Obesity PLAN: Continue aspirin, Lipitor Continue IV fluids No further cardiac workup at this time. Recommend the patient follow-up in the office with Dr. Gross in 1 to 2 weeks. Cardiology will sign off this case and follow on an as-needed basis. Please reconsult for any new concerns. Nurse practitioner note has been reviewed, I agree with documented findings and plan of care. Patient was seen and examined. Objective - Vital Signs Vital signs: Vital Signs Temp 98.2 F 11/08/24 07:36 Pulse 69 11/08/24 07:36 Resp 16 11/08/24 07:36 BP 137/85 11/08/24 07:36 Pulse Ox 96 11/08/24 07:36 FiO2 Intake & Output 11/07/24 11/08/24 11/08/24 18:59 06:59 18:59 Intake Total 472 Balance 472 Intake: Oral 472 Other: Voiding Method Toilet Toilet # Voids 1 2 1 - Labs CBC & Chem 7: 11/07/24 05:48 11/07/24 05:48 Labs: Abnormal Lab Results - Last 24 Hours (Table) 11/06/24 11/07/24 11/07/24 Range/Units 10:50 05:48 12:04 RBC 3.63 L (4.10-5.20) X 10*6/uL Hgb 10.5 L (12.0-15.0) g/dL Hct 32.6 L (37.2-46.3) % RDW 16.3 H (11.5-14.5) % ESR 91 H (0-30) mm/Hr C-Reactive Protein (0.00-0.80) mg/dL Total Protein (PEP) 10.7 H (6.2-8.2) g/dL 11/07/24 Range/Units 12:04 RBC (4.10-5.20) X 10*6/uL Hgb (12.0-15.0) g/dL Hct (37.2-46.3) % RDW (11.5-14.5) % ESR (0-30) mm/Hr C-Reactive Protein 2.90 H (0.00-0.80) mg/dL Total Protein (PEP) (6.2-8.2) g/dL
--- NOTE | 2024-11-08 10:14 | P.PN ---
Subjective Progress Note Date: 11/07/24 Patient was initially seen by Dr. Sanchez. Please refer to her note for details. I was informed by Dr. Sanchez that she has signed off on the patient. Neurology was reconsulted today at 12:18 PM for lightheadedness, generalized weakness, dizziness. I came to see the patient. Patient states that his symptoms started on 10/25/2024. About 5 days prior, on 10/20/2024, patient received a flu shot. As the symptoms persisted, she came to the ER on 10/31/2024, was observed and released. Her symptoms got worse on 11/03/2024, therefore she saw her primary physician the same day, who referred her to ER. She was having lightheadedness, dizziness, mild chest pain. She underwent stress test and echo which came back normal. Cardiac cause has been ruled out. Patient denies any numbness or tingling. Denies any slurred speech, facial droop, any visual disturbance, no focal weakness, numbness or tingling, no tinnitus. Denies any recent upper respiratory infection or cold. She denies headache except after she received nitro. Patient denies any feeling pops in the ears, or any pain. Overall sy mptoms are no better or worse. At present when she walks, she gets dizzy. Movement also produces dizziness. When she gets up and moves around, feels weak all over. No focal weakness. Patient denies any history of dizziness. Objective - Vital Signs Vital signs: Vital Signs Temp 98.0 F 11/07/24 07:00 Pulse 67 11/07/24 07:00 Resp 17 11/07/24 07:00 BP 136/86 11/07/24 07:00 Pulse Ox 94 L 11/07/24 07:00 FiO2 Intake & Output 11/06/24 11/07/24 11/07/24 18:59 06:59 18:59 Intake Total 222 236 Balance 222 236 Intake: Oral 222 236 Other: Voiding Method Toilet # Voids 2 0 - Exam Patient's mental status, speech and language functions are normal. Cranial nerves are normal. Visual guan are full. On muscle strength testing, there is no pronator drift and the strength is normal in the arms and legs distally and proximally. No ataxia for [id number]-[id number] or ybyi-ct-[id number] testing. Sensory to touch is equal with no neglect. Deep tendon reflexes are 2+ all over and plantars are withdrawal. - Labs CBC & Chem 7: 11/07/24 05:48 11/07/24 05:48 Labs: Abnormal Lab Results - Last 24 Hours (Table) 11/06/24 11/07/24 Range/Units 10:50 05:48 RBC 3.63 L (4.10-5.20) X 10*6/uL Hgb 10.5 L (12.0-15.0) g/dL Hct 32.6 L (37.2-46.3) % RDW 16.3 H (11.5-14.5) % Total Protein (PEP) 10.7 H (6.2-8.2) g/dL IgG 6072.0 H (700.0-1600.0) mg/dL Assessment and Plan Assessment: * Dizziness, vertigo started 5 days after receiving flu shot on 10/20/2024. CT head revealed evidence of left frontal sinus opacification and some opacification of the bilateral anterior ethmoid cells. Symptoms probably due to labyrinthitis. Cardiac cause ruled out. Plan: 1. Patient had a repeat CT head performed today, for persistent symptoms, which revealed no acute intracranial process. Clinical correlation for mild sinusitis within frontal sinuses. On my review, I agree there is evidence of opacification of the left frontal sinus and bilateral anterior ethmoid sinuses. Sphenoid and maxillary sinuses are clear. EAC are clear. Recommend course of antibiotic, perhaps Augmentin for 7-10 days for acute sinusitis. Continue meclizine. Continue aspirin 81 mg, Lipitor 40 mg. Also on B12 1000 mcg daily. 2. 2D echo revealed LVEF 55%. No obvious regional wall motion abnormalities. Mildly increased left atrial volume. No left atrial thrombus or mass. Mild to moderately increased left ventricular wall thickness. Trace MR. 3. CTA of the chest revealed no evidence of pulmonary embolism. Incompletely fused left anterior rib fractures. Chronic illness changes partially calcified lymph nodes and granulomas in the spleen.
[2024-11-08 10:33] LABS: Albumin 2.96 g/dL (3.80-4.90); Gamma Globulin 5.72 g/dL (0.70-1.50)
--- NOTE | 2024-11-08 10:54 | MR ---
EXAMINATION TYPE: MR brain wo con DATE OF EXAM: 11/08/2024 10:41 AM COMPARISON: 04/06/2022. CLINICAL INDICATION: Female, 54 years old with history of Persistent dizziness, Persistent dizziness. TECHNIQUE: Multi planar, multi sequence imaging was performed through the brain including: T1, T2, In version recovery, Diffusion weighted imaging, and gradient echo imaging. No gadolinium was given. FINDINGS: Cavum septum pellucidum noted. The fang-white junctions, ventricular system, basal cisterns appear unremarkable. Scattered foci of high T2 signal intensity are seen within the periventricular white matter. Midline structures show n o abnormality. Diffusion-weighted imaging shows no evidence of restricted diffusion. The susceptibili ty weighted images do not reveal any evidence for micro-hemorrhage. The bone marrow signal is has bone marrow signal throughout the calvarium. There is scattered subcent imeter high FLAIR high T2 signal. Paranasal sinuses and mastoid air cells: No significant paranasal sinus disease. Visualized orbits: Orbital contents are intact. IMPRESSION: 1. No evidence of intracranial mass or acute/subacute infarct. 2. Nonspecific white matter changes, likely secondary to small vessel ischemic disease. [facility], , 11/08/2024 10:52 AM
[2024-11-08 14:46] VITALS: BP 115/79; PULSE 92; TEMP 98.5
--- NOTE | 2024-11-08 15:43 | P.DS ---
Providers Date of admission: 11/03/24 16:27 Expected date of discharge: 11/08/24 Attending physician: Missy Caban MD Consults: 11/03/24 16:23 Consult Physician Urgent Consulting Provider: [facility] Consult Reason/Comments: acute chest pain, possible acs Do you want consulting provider notified?: Yes 11/04/24 16:19 Consult Physician Urgent Consulting Provider: Ronaldo Barriga Consult Reason/Comments: lightheadedness, gen. weakness, dizziness Do you want consulting provider notified?: Yes 11/07/24 11:57 Consult Physician Urgent Consulting Provider: Ronaldo Barriga Consult Reason/Comments: Dizziness, lightheadedness getting up, please reeval Do you want consulting provider notified?: Yes Primary care physician: Adrienne Patino [facility] Course: Hospital course:54-year-old female with past medical history of valvular disease who presents to the emergency department reporting chest pain, back pain, shortness of breath for the past 5 days. Patient previously seen in the emergency department on the with same complaint. Workup was performed. Patient found to be acetone positive with high protein. Patient was discharged home. Continues to have symptoms. Saw her primary care doctor today who recommended that she come back to the hospital for continued chest pain. Patient denies fevers, chills or cough. Admits nausea without vomiting. D ecreased oral intake. No other alleviating, precipitating or modifying factors Workup completed in ED reveals a WBC of 7.6, hemoglobin of 12.3 and platelet count of 436, sodium 130, potassium 3.8, BUNs/creatinine of 19/0.89, troponin of less than 0.012 UA reveals 2+ ketones with rare bacteria and 7 WBCs and elevated squamous cells -Given elevated ketones/acetone, patient is being admitted for dehydration and further workup of chest pain Progress note for 11/06/2024: Patient was seen at bedside today. Still reports a 2 out of 10 chest pain although overall has been feeling better compared to yesterday. No other acute complaints at this time. Patient is scheduled to undergo a stress test and echocardiogram today. 11/07/2024 Patient being followed by cardiology and evaluated at bedside recommending orthostatic vitals which were not positive as patient is reporting significant dizziness and lightheadedness with continued ongoing symptoms. Neurology initially evaluated the patient although we will reconsult and also obtain CT brain. Recommend meclizine 12.5 mg scheduled with a stat dose of 25 mg given now. Cardiology is status post stress test which was negative and is stable fro m there per staff. Recommend monitoring overnight and also gentle hydration. Follow-up with repeat labs in the AM. Patient was seen at bedside on 11/08/2024. Still endorses a 2 out of 10 chest pain however overall improving. CT of brain obtained on 11/07/2024 showed no acute intracranial process. Clinical consideration for mild sinusitis within the frontal sinuses. MRI of brain on 11/08/2024 showed no evidence of intracranial mass or acute/subacute infarct. Patient is medically stable to be discharged back home. Neurology recommended Augmentin for 7-10 days for acute sinusitis and continue with meclizine. 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 Patient is recommended to follow-up with heme-onc and GI specialist for further evaluation. Patient will be discharged home with Augmentin [id number] twice daily for 5 days and meclizine 12.5 mg 3 times daily for 2 days. Lipitor 40 mg at bedtime added to patient's home medication list. Patient is recommended to follow-up with PCP in 1 to [address] Gross, gastroenterology Dr. Abbott, heme-onc Dr. Lock in 1 week after discharge. Physical examination at discharge: GENERAL: This is a 54-year-old in no apparent distress at the time of examination. Pleasant and cooperative. HEENT: Head is atraumatic, normocephalic. Pupils are equal, round, and reactive to light. Sclerae anicteric. Conjunctivae are clear. Mucus membranes of the mouth are moist. Neck is supple. RESPIRATORY: Clear to auscultation. No wheezes, rales, or rhonchi. No use of accessory muscles. Patient maintaining oxygen saturation greater than 92%. No chest wall tenderness is noted on palpation or with deep breathing. CARDIOVASCULAR: Regular rate and rhythm. S1 and S2 noted. No systolic or diastolic murmur auscultated. No JVD noted. No S3 or S4 noted. GASTROINTESTINAL: No distention noted. Abdomen soft and round. Normal active bowel sounds auscultated x 4 quadrants. No pain or tenderness noted upon palpation. INTEGUMENTARY: No cyanosis. No jaundice. No rashes noted. No cellulitis noted. EXTREMITIES: 2+ peripheral pulses. No evidence of peripheral edema. No calf tenderness noted. NEUROLOGIC: Cranial nerves II-XII intact. PSYCHIATRIC: Awake, alert, and oriented X 3. Appropriate affect. Intact judgement and insight. Patient Condition at Discharge: Stable Plan - Discharge Summary Discharge Rx Participant: No New Discharge Prescriptions: New Atorvastatin [Lipitor] 40 mg PO HS 30 Days #30 tablet Meclizine [Antivert] 12.5 mg PO TID 2 Days #6 tablet Amoxic-Pot Clav 875-125Mg [Augmentin 875-125] 1 tab PO BID 5 Days #10 tab Continue Aspirin 81 mg PO DAILY Escitalopram [Lexapro] 5 mg PO DAILY Cyanocobalamin (Vitamin B-12) [Vitamin B-12] 1,000 mcg PO DAILY lysine HCL [l-Lysine] 1,000 mg PO DAILY Ascorbic Acid [Vitamin C] 1,000 mg PO DAILY Multivitamins, Thera [Multivitamin (formulary)] 1 tab PO DAILY Discharge Medication List Ascorbic Acid [Vitamin C] 1,000 mg PO DAILY 11/03/24 [History] Aspirin 81 mg PO DAILY 11/03/24 [History] Cyanocobalamin (Vitamin B-12) [Vitamin B-12] 1,000 mcg PO DAILY 11/03/24 [History] Escitalopram [Lexapro] 5 mg PO DAILY 11/03/24 [History] Multivitamins, Thera [Multivitamin (formulary)] 1 tab PO DAILY 11/03/24 [History] lysine HCL [l-Lysine] 1,000 mg PO DAILY 11/03/24 [History] Amoxic-Pot Clav 875-125Mg [Augmentin 875-125] 1 tab PO BID 5 Days #10 tab 11/08/24 [Rx] Atorvastatin [Lipitor] 40 mg PO HS 30 Days #30 tablet 11/08/24 [Rx] Meclizine [Antivert] 12.5 mg PO TID 2 Days #6 tablet 11/08/24 [Rx] Follow up Appointment(s)/Referral(s): Adrienne Patino MD [Primary Care Provider] - 1-2 days Georgette Abbott MD [STAFF PHYSICIAN] - 1 Week Ramesh Lock [STAFF PHYSICIAN] - 1 Week Duy Gross MD [Medical Doctor] - 1 Week Discharge Disposition: HOME SELF-CARE
== END 2024-11-08 16:30 | disposition home or self-care (01) | DRG 422 ==
LOC: EC 11:08 → 6NMEDSUR 16:26 → OBSVTOIN 16:27 → 6NMEDSUR 17:36
PROVIDERS: ADMIT Internal Medicine; ATTEND Internal Medicine
DX: E86.0 Dehydration (principal); D47.2 Monoclonal gammopathy; E53.8 Deficiency of other specified B group vitamins; E66.9 Obesity, unspecified; F32.A Depression, unspecified; M19.90 Unspecified osteoarthritis, unspecified site; J01.90 Acute sinusitis, unspecified; R20.2 Paresthesia of skin; G90.A Postural orthostatic tachycardia syndrome [POTS]; R73.03 Prediabetes; H83.09 Labyrinthitis, unspecified ear; Z68.36 Body mass index [BMI] 36.0-36.9, adult; Z79.82 Long term (current) use of aspirin; Z79.899 Other long term (current) drug therapy; Z82.49 Family history of ischemic heart disease and other diseases of the circulatory system; Z87.442 Personal history of urinary calculi; Z87.891 Personal history of nicotine dependence
CPT/HCPCS: 36415; 70450; 70551; 71046; 71275; 78452; 80048; 80053; 80061; 80074; 81001; 82009; 82784; 82785; 83036; 83735; 83880; 84165; 84439; 84443; 84484; 85025; 85379; 85652; 86140; 93005; 93017; 93306; 96360; 96361; 99285

== ENCOUNTER 2024-12-15 12:10 | Day surgery (SDC) | payer OTHER ==
[2024-12-15] MEDS: IV FLUID CONTINUATION 1,000 ML IV ONE (13:09)
[2024-12-15 13:14] VITALS: TEMP 98.1
[2024-12-15] MEDS: LACTATED RINGERS 1,000 ML IV SCH (13:21)
[2024-12-15] MEDS ORDERED: PROPOFOL 10 MG/ML 20 ML VIAL IV ONE (13:57)
--- NOTE | 2024-12-15 14:08 | P.PCN ---
Date of Procedure: 12/15/24 Procedure(s) Performed: BRIEF HISTORY: Patient is a 54-year-old pleasant white female scheduled for an elective colonoscopy as a part of screening for colon cancer. PROCEDURE PERFORMED: Colonoscopy. PREOPERATIVE DIAGNOSIS: Screening for colon cancer. IV sedation per Anesthesia. PROCEDURE: After informed consent was obtained, the patient, was brought into the endoscopy unit. IV sedation was administered by Anesthesia under continuous monitoring. Digital rectal examination was normal. Initially the Olympus CF-160 flexible video colonoscope was then inserted in the rectum, gradually advanced into the cecum without any difficulty. Careful examination was performed as the scope was gradually being withdrawn. Ileocecal valve and the appendiceal orifice were visualized and appeared normal. Prep was excellent. Mucosa of the cecum, ascending colon, transverse colon, descending colon, sigmoid colon, and rectum appeared normal. Retroflexion was performed in the rectum and no lesions were seen. The patient tolerated the procedure well. IMPRESSION: Normal-appearing colon from rectum to cecum no evidence of colorectal neoplasia. RECOMMENDATIONS: Findings of this examination were discussed with the patient as well as her family.. He was advised to have repeat screening colonoscopy in 10 years.
[2024-12-15 14:52] VITALS: BP 121/69; PULSE 62; RESP 18
== END 2024-12-15 15:08 | disposition home or self-care (01) ==
LOC: ORWHC2ENDO 12:10
PROVIDERS: ATTEND Internal Medicine Gastroenterology
DX: Z12.11 Encounter for screening for malignant neoplasm of colon (principal)
CPT/HCPCS: 45378

== ENCOUNTER → 2024-12-22 | Outpatient (CLI) | payer OTHER ==
--- NOTE | 2024-12-22 12:03 | XR ---
EXAMINATION TYPE: XR abdomen 2V DATE OF EXAM: 12/22/2024 COMPARISON: CT abdomen and pelvis 07/12/2020 HISTORY: Abdominal pain TECHNIQUE: Single supine KUB image of the abdomen is obtained FINDINGS: Small bowel demonstrates no evidence for dilatation or air fluid levels. Gas and fecal material is seen in non-distended colon. No convincing evidence for pneumoperitoneum. No unusual calcifications. Cholecystectomy clips in the right upper quadrant. The lung bases are clear. The osseous structures are intact. IMPRESSION: Overall nonobstructive bowel gas pattern. [facility], , 12/22/2024 12:00 PM
--- NOTE | 2024-12-22 12:04 | XR ---
EXAMINATION TYPE: XR Hip Complete RT DATE OF EXAM: 12/22/2024 11:53 AM INDICATION: Patient age:Female; 54 years old; Reason for study: R10.9 UNSPECIFIED ABDOMINAL PAIN M25.551 RIGHT HIP; PHH. pain COMPARISON: Abdominal radiograph of the same day, CT abdomen and pelvis 07/12/2020. TECHNIQUE: The right hip was examined in the frontal and lateral projections . FINDINGS: No evidence of any acute osseous pathology, joint dislocation, or soft tissue swelling. No significant joint space narrowing. IMPRESSION: No acute osseous pathology. [facility], , 12/22/2024 12:01 PM
--- NOTE | 2024-12-22 12:05 | XR ---
EXAMINATION TYPE: XR femur RT DATE OF EXAM: 12/22/2024 12:00 PM INDICATION: Patient age:Female; 54 years old; Reason for study: RT THIGH PAIN; pain COMPARISON: Right hip radiograph 12/22/2024 TECHNIQUE: The right femur was examined in frontal and lateral projections. FINDINGS: No evidence of acute osseous pathology, joint dislocation, or soft tissue swelling. No rad iopaque foreign body. No periosteal reaction. IMPRESSION: No acute osseous pathology. [facility], , 12/22/2024 12:02 PM
--- NOTE | 2024-12-22 12:07 | XR ---
EXAMINATION TYPE: XR ribs RT w pa chest xray DATE OF EXAM: 12/22/2024 11:53 AM INDICATION: Patient age:Female; 54 years old; Reason for study: R10.9 UNSPECIFIED ABDOMINAL PAIN M25.551 RIGHT HIP; PHH. pain COMPARISON: Chest radiograph 11/06/2024. TECHNIQUE: Frontal and oblique views of the right ribs with PA chest radiograph. FINDINGS: The ribs have a normal appearance. No evidence of fracture. Overall, the lungs are clear. The cardiac silhouette is normal in size. The remaining osseous structures are intact. Cholecystect juan clips in the right upper quadrant. IMPRESSION: No acute osseous pathology. [facility], , 12/22/2024 12:04 PM
--- NOTE | 2024-12-22 12:10 | XR ---
EXAMINATION TYPE: XR lumbosacral spine min 4V, XR thoracic spine 2V DATE OF EXAM: 12/22/2024 11:53 AM INDICATION: Patient age:Female; 54 years old; Reason for study: R10.9 UNSPECIFIED ABDOMINAL PAIN M25.551 RIGHT HIP; PHH. pain COMPARISON: Chest radiograph 11/06/2024, CTA chest 11/06/2024, CT abdomen and pelvis 07/12/2020 TECHNIQUE: Frontal, lateral, bilateral oblique and coned down lateral L5-S1 views of the lumbar spine were obtained. Frontal, lateral, swimmer's views of the thoracic spine were obtained. FINDINGS: There are 5 lumbar type vertebral bodies identified. No evidence of any acute osseous patho logy. No evidence of loss of vertebral body height is seen. There is normal alignment of the vertebr al bodies. There are changes of the superior endplate of the L5 vertebral body with Schmorl's node. M ultilevel disc space narrowing with endplate process of the thoracic spine. Both SI joints appear int act. Cholecystectomy clips in the right upper quadrant. IMPRESSION: 1. No acute process. 2. Mild multilevel degenerative disc disease of the thoracolumbar spine. Pronounced at L4-L5 with a Schmorl's node involving the superior endplate of the L5 vertebral body. [facility], , 12/22/2024 12:08 PM
== END | disposition home or self-care (01) ==
LOC: RADXRMAIN 10:55
PROVIDERS: ATTEND Family Medicine
DX: R10.9 Unspecified abdominal pain (principal); M25.551 Pain in right hip; M79.651 Pain in right thigh
CPT/HCPCS: 72070; 72110; 73502; 74019

== ENCOUNTER 2025-04-30 12:10 | Emergency (ER) | payer BC ==
--- NOTE | 2025-04-30 12:50 | ED ---
General Adult HPI - General Chief complaint: Recheck/Abnormal Lab/Rx Stated complaint: R hip/back pain Time Seen by Provider: 04/30/25 12:24 Source: patient, RN notes reviewed Mode of arrival: wheelchair Limitations: no limitations - History of Present Illness Initial comments: Patient is a 54-year-old female present to the emergency department with concern for pain. Patient has metastatic bone disease, recently had imaging for markers for radiation treatment. Patient has previous CT with known metastatic bone disease. This was done a couple weeks ago. No new weakness. Pain has increased the past few days. Patient was sent from [facility]. - Related Data Home Medications Medication Instructions Recorded Confirmed Escitalopram [Lexapro] 5 mg PO DAILY 11/03/24 04/30/25 Acyclovir [Zovirax] 400 mg PO DIRECTED 04/30/25 04/30/25 HYDROcodone/APAP 5-325MG [[place] 1 tab PO Q6H PRN 04/30/25 04/30/25 5-325] Lenalidomide [Revlimid] 25 mg PO DIRECTED 04/30/25 04/30/25 Ondansetron Odt [Zofran Odt] 4 - 8 mg PO DIRECTED PRN 04/30/25 04/30/25 Sulfamethox-Tmp 800-160Mg [Bactrim 1 tab PO DIRECTED 04/30/25 04/30/25 DS 800-160 mg] allopurinoL [Zyloprim] 300 mg PO DIRECTED 04/30/25 04/30/25 dexAMETHasone [Decadron] 40 mg PO DIRECTED 04/30/25 04/30/25 Allergies Allergy/AdvReac Type Severity Reaction Status Date / Time strawberry Allergy Rash/Hives Verified 04/30/25 13:15 Review of Systems ROS Statement: Those systems with pertinent positive or pertinent negative responses have been documented in the HPI. ROS Other: All systems not noted in ROS Statement are negative. Constitutional: Denies: fever Eyes: Denies: eye pain ENT: Denies: ear pain Respiratory: Denies: dyspnea Cardiovascular: Denies: chest pain Musculoskeletal: Reports: as per HPI Neurological: Denies: weakness Past Medical History Past Medical History: Cancer Additional Past Medical History / Comment(s): leaky valves in heart, kidney stones History of Any Multi-Drug Resistant Organisms: None Reported Past Surgical History: Cholecystectomy, Orthopedic Surgery, Tubal Ligation Additional Past Surgical History / Comment(s): lap, left knee scope Past Anesthesia/Blood Transfusion Reactions: No Reported Reaction Past Psychological History: No Psychological Hx Reported Smoking Status: Former smoker Past Alcohol Use History: Occasional Past Drug Use History: None Reported - Past Family History Father Family Medical History: Cancer Additional Family Medical History / Comment(s): prostate Mother Family Medical History: Hypertension General Exam Limitations: no limitations General appearance: alert Head exam: Present: normocephalic Eye exam: Present: normal appearance Neck exam: Present: normal inspection Respiratory exam: Present: normal lung sounds bilaterally Cardiovascular Exam: Present: regular rate, normal rhythm GI/Abdominal exam: Present: soft. Absent: tenderness Extremities exam: Present: tenderness (Right hip. Distally the extremity is neurovascular tact) Back exam: Present: vertebral tenderness (Lower lumbar region) Neurological exam: Present: alert. Absent: motor sensory deficit Expanded Neurological exam: Present: protecting the airway Speech: Present: fluid speech Motor strength exam: RUE: 5, LUE: 5, RLE: 5, LLE: 5 Eye Response: (4) open spontaneously Motor Response: (6) obeys commands Verbal Response: (5) oriented Psychiatric exam: Present: normal affect, normal mood Skin exam: Present: normal color Course Vital Signs 04/30/25 04/30/25 04/30/25 12:17 14:00 15:49 Temperature 97.8 F Pulse Rate 76 72 74 Respiratory 20 17 17 Rate Blood Pressure 142/87 150/80 161/86 O2 Sat by Pulse 99 96 94 L Oximetry Medical Decision Making - Medical Decision Making Was pt. sent in by a medical professional or institution (Dr. PA, SURGICAL AIDE, urgent care, hospital, or intermediate...) When possible be specific @ -Patient was sent from radiation oncology imaging Did you speak to anyone other than the patient for history (EMS, parent, family, police, friend...)? What history was obtained from this source @ -Family is present helps provide history as patient is in a lot of pain and prefers not to Did you review nursing and triage notes (agree or disagree)? Why? @ -I reviewed and agree with nursing and triage notes Were old charts reviewed (outside hosp., previous admission, EMS record, old EKG, old radiological studies, urgent care reports/EKG's, intermediate records)? Report findings @ -Previous x-rays reviewed from 2 months ago Differential Diagnosis (chest pain, altered mental status, abdominal pain women, abdominal pain men, vaginal bleeding, weakness, fever, dyspnea, syncope, headache, dizziness, GI bleed, back pain, seizure, CVA, palpatations, mental health, musculoskeletal)? @ -Differential Musculoskeletal Muscular strain, contusion, ligament sprain, fracture, arthritis, septic a rthritis, bursitis, cellulitis, muscle spasm, nerve compression, DVT, arterial occlusion, herpes zoster, electrolyte abnormality, tumor.... This is not meant to be in all inclusive list EKG interpreted by me (3pts min.). @ -As above X-rays interpreted by me (1pt min.). @ -Lumbar x-ray shows L2 Schmorl's nodes which appear new from x-rays 2 months ago. X-rays right hip and pelvis has concern for severe bony disease as well as subtrochanteric fracture on the right, nondisplaced CT interpreted by me (1pt min.). @ -None done U/S interpreted by me (1pt. min.). @ -None done What testing was considered but not performed or refused? (CT, X-rays, U/S, labs)? Why? @ -None What meds were considered but not given or refused? Why? @ -None Did you discuss the management of the patient with other professionals (professionals i.e. , PA, SURGICAL AIDE, lab, RT, psych nurse, nephrology social worker, spray worker, teacher, reserve officer, case resolution specialist)? Give summary @ -Case discussed with Leia marques who did speak with Dr. Hussein and recommends transfer, consider Dr. José Luis Steele at [facility] for orthopedic oncology evaluation. They feel it is best for patient to be evaluated prior to starting any radiation as this could limit further treatment. Case also discussed with [facility] transfer training as well as Dr. Moore who will accept transfer. Was smoking cessation discussed for >3mins.? @ -No Was critical care preformed (if so, how long)? @ -No Were there social determinants of health that impacted care today? How? (Homelessness, low income, unemployed, alcoholism, drug addiction, trans portation, low edu. Level, literacy, decrease access to med. care, fpc, rehab)? @ -No Was there de-escalation of care discussed even if they declined (Discuss DNR or withdrawal of care, Hospice)? DNR status @ -No What co-morbidities impacted this encounter? (DM, HTN, Smoking, COPD, CAD, Cancer, CVA, ARF, Chemo, Hep., AIDS, mental health diagnosis, sleep apnea, morbid obesity)? @ -New diagnosis multiple myeloma Was patient admitted / discharged? Hospital course, mention meds given and route, prescriptions, significant lab abnormalities, going to OR and other pertinent info. @ -Patient with new diagnosis of multiple myeloma presents with significant back and right hip pain. X-rays concerning for pathologic fracture and Schmorl's nodes. Patient will be transferred for orthopedic oncology evaluation. Patient reevaluated several times. Patient and family updated. Undiagnosed new problem with uncertain prognosis? @ -No Drug Therapy requiring intensive monitoring for toxicity (Heparin, Nitro, Insulin, Cardizem)? @ -No Were any procedures done? @ -No Diagnosis/symptom? @ -Pathological fracture right femur. Schmorl's nodes L2 Acute, or Chronic, or Acute on Chronic? @ -Acute, acute Uncomplicated (without systemic symptoms) or Complicated (systemic symptoms)? @ -Default Side effects of treatment? @ -No Exacerbation, Progression, or Severe Exacerbation? @ -No Poses a threat to life or bodily function? How? (Chest pain, [place], [place], pneumonia, PE, COPD, DKA, ARF, appy, cholecystitis, CVA, Diverticulitis, Homicidal, Suicidal, threat to staff... and all critical care pts) @ -Threat to bony structure Disposition Clinical Impression: Pathological fracture of hip Disposition: OTHER INSTITUTION NOT DEFINED Condition: Stable Is patient prescribed a controlled substance at d/c from ED?: No Referrals: Adrienne Patino MD [Primary Care Provider] - 1-2 days Time of Disposition: 15:57 - Out of Hospital Transfer - Req. Specs Out of Hospital Transfer - Requested Specifics: Other Emergency Center
[2025-04-30] MEDS: KETOROLAC 15 MG/ML 1 ML VIAL IM STA (13:01)
[2025-04-30] MEDS: HYDROmorphone 1 MG/ML 1 ML SYRINGE IM STA (13:03)
--- NOTE | 2025-04-30 14:34 | XR ---
EXAMINATION TYPE: XR lumbar spine 2V DATE OF EXAM: 04/30/2025 2:18 PM COMPARISON: 12/22/2024 CLINICAL INDICATION: Female, 54 years old with history of Metastatic bone pain; PHH, pain FINDINGS: Cholecystectomy clips. 5 lumbar type vertebral bodies. Osteopenia. There is facet arthropathy lower l umbar spine with trace grade 1 anterolisthesis L5-S1. Severe and inferior endplate deformities/Schmor l nodes at L2 appear to be new. Otherwise, vertebral body heights are preserved and alignment is main tained. IMPRESSION: 1. Superior and inferior plate Schmorl's nodes at L2 are new from 12/22/2024. If pain localizes here, acute Schmorl's nodes would be considered. 2. Degenerative trace grade 1 anterolisthesis L5-S1. [facility], Workstation: [facility], 04/30/2025 2:32 PM
--- NOTE | 2025-04-30 15:10 | XR ---
EXAMINATION TYPE: XR Hip 2 views RT and AP Pelvis DATE OF EXAM: 04/30/2025 2:30 PM COMPARISON: Femur 12/22/2024 and bone survey 03/19/2025 CLINICAL INDICATION: Female, 54 years old with history of Metastatic bone pain; PHH, pain FINDINGS: Diffuse lytic disease throughout the pubic bones and visualized proximal femurs with numerous lytic l esions. There is prominent thinning of lateral cortex in the right subtrochanteric region. On the fro g-leg lateral view, there is possible fracture along the anterior cortex in this region. IMPRESSION: Diffuse lytic metastatic disease appears progressed from 03/19/2025. Development of a nondisplaced path ologic fracture involving the anterior cortex of the subtrochanteric proximal right femur. Patient sh ould be made nonweightbearing. Called to Dr. Gregory in the ER at 3:08 PM. [facility], , 04/30/2025 3:08 PM
[2025-04-30] MEDS: MORPHINE SULFATE 4 MG/ML SYRINGE IVP STA (15:45)
[2025-04-30 16:28] LABS: Basophils # (A) 0.02 10*3/uL (0.00-0.10); Basophils % (A) 0.3 %; Eosinophils # (A) 0.04 10*3/uL (0.04-0.35); Eosinophils % (A) 0.5 %; HCT 23.2 % (37.2-46.3); HGB 7.6 g/dL (12.0-15.0); Lymphocytes # (A) 1.59 10*3/uL (0.90-5.00); Lymphocytes % (A) 21.5 %; MCH 29.5 pg (27.0-32.0); MCHC 32.8 g/dL (32.0-37.0); MCV 89.9 fL (80.0-97.0); Monocytes # (A) 0.35 10*3/uL (0.20-1.00); Monocytes % (A) 4.7 %; Neutrophils # (A) 5.38 10*3/uL (1.80-7.70); Neutrophils % (A) 72.6 %; Platelet Count 343 10*3/uL (140-440); RBC 2.58 10*6/uL (4.10-5.20); RDW 17.6 % (11.5-14.5); WBC 7.41 10*3/uL (4.50-10.00)
[2025-04-30 16:38] LABS: INR 1.1 (<1.2); Partial Thromboplastin Time 22.5 sec (22.0-30.0); Prothrombin Time 11.7 sec (10.0-12.5)
[2025-04-30 16:44] LABS: ALT 21 U/L (4-34); AST 25 U/L (14-36); African American GFR (CKD) 27 (>60 ml/min/1.73 sqM); Albumin 3.6 g/dL (3.5-5.0); Alkaline Phosphatase 96 U/L (38-126); Anion Gap 15 mmol/L; Blood Urea Nitrogen 30 mg/dL (7-17); Carbon Dioxide 23 mmol/L (22-30); Chloride 101 mmol/L (98-107); Glucose 107 mg/dL (74-99); Non-African American GFR(CKD) 23 (>60 ml/min/1.73 sqM); Potassium 4.4 mmol/L (3.5-5.1); Sodium 139 mmol/L (137-145)
[2025-04-30] MEDS: HYDROmorphone 1 MG/ML 1 ML SYRINGE IVP STA (16:55)
[2025-04-30 16:57] VITALS: BP 166/88; PULSE 71; RESP 18; TEMP 98.6
[2025-04-30 16:57] LABS: Total Protein 14.3 g/dL (6.3-8.2)
[2025-04-30 16:58] LABS: Calcium 13.5 mg/dL (8.4-10.2)
== END 2025-04-30 16:57 | disposition other institution (70) ==
LOC: EC 12:10
DX: C79.51 Secondary malignant neoplasm of bone (principal); M84.559A Pathological fracture in neoplastic disease, hip, unspecified, initial encounter for fracture; Z87.891 Personal history of nicotine dependence; Z91.018 Allergy to other foods
CPT/HCPCS: 36415; 80053; 85025; 85610; 85730; 72100; 73502; 99285; 96374; 96375; 96372 ×2; 51702; J2270; J1171; J1885